=== PATIENT | female | born 1975 | race Caucasian/White ===

== ENCOUNTER → 2017-04-04 | Outpatient (CLI) | payer MEDICAID ==
[2017-04-04 19:20] LABS: BASOPHILS % (AUTO) 0.4 %; EOSINOPHILS # (AUTO) 0.1 10^3/uL (0.0-0.7); EOSINOPHILS % (AUTO) 0.9 %; HCT - HEMATOCRIT 38.3 % (37.0-47.0); HGB - HEMOGLOBIN 12.7 g/dL (12.0-16.0); LYMPHOCYTES % (AUTO) 25.2 %; MEAN CORPUSCULAR HEMOGLOBIN 29.2 pg (27.0-31.0); MEAN CORPUSCULAR HGB CONC 33.2 g/dL (32.0-36.0); MEAN PLATELET VOLUME 8.3 fL (7.9-10.8); MONOCYTES # (AUTO) 0.3 10^3/uL (0.0-1.0); MONOCYTES % (AUTO) 3.2 %; NEUTROPHILS # (AUTO) 5.7 10^3/uL (1.5-6.6); NEUTROPHILS % (AUTO) 70.3 %; NUCLEATED RED BLOOD CELLS AUTO 0.1 /100WBC; RED BLOOD COUNT 4.35 10^6/uL (4.20-5.40); RED CELL DISTRIBUTION WIDTH 13.2 % (12.0-15.0); UNCORRECTED WHITE BLOOD COUNT 8.5 x10^3/uL; WHITE BLOOD COUNT 8.1 x10^3/uL (4.8-10.8)
[2017-04-04 19:41] LABS: PLATELET MORPHOLOGY RARE GIANT PLATELETS (NORMAL)
[2017-04-04 19:49] LABS: ALBUMIN/GLOBULIN RATIO 1.3 (1.0-2.2); BILIRUBIN,TOTAL 0.6 mg/dL (0.2-1.0); BUN - BLOOD UREA NITROGEN 12 mg/dL (6-20); CALCIUM 8.9 mg/dL (8.5-10.3); CARBON DIOXIDE - CO2 25 mmol/L (21-32); CHLORIDE 104 mmol/L (101-111); CHOL/HDL RATIO 3.7 (<4.4); CHOLESTEROL 179 mg/dL; CREATININE 0.7 mg/dL (0.4-1.0); GFR - MDRD 91 (>89); GLUCOSE 76 mg/dL (70-100); HDL CHOLESTEROL 48 mg/dL; LDL/HDL RATIO 2.4 (<4.4); POTASSIUM 3.6 mmol/L (3.5-5.0); SODIUM 137 mmol/L (135-145); TOTAL PROTEIN 7.1 g/dL (6.7-8.2); TRIGLYCERIDES 85 mg/dL; VLDL CHOLESTEROL 17 mg/dL
[2017-04-04 19:50] LABS: PLATELET ESTIMATE, MANUAL NORMAL (130-450,000) (NORMAL)
== END ==
LOC: LAB.N 14:39
PROVIDERS: ATTEND Nurse Practitioner Gerontology
DX: B19.20 Unspecified viral hepatitis C without hepatic coma (principal); Z13.9 Encounter for screening, unspecified
CPT/HCPCS: 36415; 80053; 80061; 84443; 85025; 87522

== ENCOUNTER 2017-12-09 21:02 | Emergency (ER) | payer MEDICAID ==
[2017-12-09 21:13] VITALS: BP 136/105
--- NOTE | 2017-12-09 22:56 | ED Physician Documentation ---
PD HPI SKIN - Stated complaint Stated Complaint: WOUND ON FACE/HANDS - Chief complaint Chief Complaint: General - History obtained from History obtained from: Patient - History of Present Illness Timing - onset: How many days ago (several days to a week of progressive lesions on skin. Had some skin sores on arms and legs initially, and now with one on forehead too. Denies itching. Had had lice in hair and did the shampoo treatment couple weeks ago or so.) Timing - details: Gradual onset Location: Bodywide Quality / character: Painful, Burning. No: Itchy, Vesicular, Draining (but have redness around edges and yellowish base c/w infection look.) Associated symptoms: Myalgias. No: Fever, N/V/D Contributing factors: No: Insect bite /sting Similar symptoms before: Has not had sx before Review of Systems Constitutional: reports: Myalgias. denies: Fever, Chills Nose: denies: Rhinorrhea / runny nose, Congestion Throat: denies: Sore throat Cardiac: denies: Chest pain / pressure, Palpitations Respiratory: denies: Dyspnea, Cough GI: denies: Abdominal Pain, Nausea, Vomiting, Diarrhea Skin: reports: Lesions Neurologic: denies: Focal weakness, Numbness PD PAST MEDICAL HISTORY - Past Medical History Past Medical History: Yes Other Past Medical History: Hx Hoep C - Past Surgical History Past Surgical History: Yes General: Hiatal hernia repair Ortho: Other /[facility] [employer]: section, 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 - Present Medications Home Medications: Ambulatory Orders Medication Instructions Recorded Confirmed Meloxicam [Mobic] 7.5 mg PO BID PRN #20 tablet 05/15/17 Sulfamethox/Trimeth 800/160 1 each PO BID #14 tablet 05/15/17 [Bactrim Ds 800/160] Chlorhexidine Gluconate [Hibiclens] 10 ml TP DAILY #473 ml 12/10/17 Doxycycline Monohydrate 100 mg PO BID #14 tablet 12/10/17 Mupirocin 1 applic TP TID #15 oint...g. 12/10/17 Naproxen 375 mg PO BID #20 tablet 12/10/17 Permethrin 5% Cream 60 applic TOP ONCE #1 tube 12/10/17 - Allergies Allergies/Adverse Reactions: Allergies Allergy/AdvReac Type Severity Reaction Status Date / Time Latex, Natural Rubber Allergy Rash Verified 12/09/17 21:13 - Social History Does the pt smoke?: Yes Smoking Status: Current every day smoker Does the pt drink ETOH?: Yes Does the pt have substance abuse?: No - Immunizations Immunizations are current?: Yes Immunizations: TDAP current <10years - POLST Patient has POLST: No PD ED PE NORMAL - Vitals Vital signs reviewed: Yes - General General: Alert and oriented X 3, No acute distress, Well developed/nourished - HEENT HEENT: Ears normal, Pharynx benign, Other (her black hair is easy to examine and I don't see any nits. ) - Neck Neck: Supple, no meningeal sign, No adenopathy - Cardiac Cardiac: RRR, No murmur - Respiratory Respiratory: Clear bilaterally - Abdomen Abdomen: Soft, Non tender - Derm Derm: Warm and dry, Other (discrete multiple lesions (about a dozen total) on arms and legs and one on forehead of superficially ulcerative, red margins, yellow base, without weeping nor purulence, that are tender. No underlying indurance nor flucutuance. They appear superficial infections, likely staph. ) Results - Vitals Vitals: Oxygen O2 Source Room air PD MEDICAL DECISION MAKING - ED course Complexity details: considered differential (multiple superficial ulcerations without purulence but have yellowish base and halo of redness each. ), d/w patient - Sepsis Event Vital Signs: Oxygen O2 Source Room air Departure - Departure Disposition: 01 Home, Self Care Clinical Impression: Skin infection Condition: Stable Record reviewed to determine appropriate education?: Yes Instructions: ED Staph Infec Abx Tx Only Prescriptions: Chlorhexidine Gluconate [Hibiclens] 10 ml TP DAILY #473 ml Doxycycline Monohydrate 100 mg PO BID #14 tablet Mupirocin 1 applic TP TID #15 oint...g. Naproxen 375 mg PO BID #20 tablet Permethrin 5% Cream 60 applic TOP ONCE #1 tube Comments: The initial skin irritation and itchiness may be from an infestation such as scabies. Treated with the permethrin lotion from neck to toes per the bottle directions. The skin sores do appear to be infected and that may be the primary issue with an infection developing and new spots as opposed to the source from itching then getting in infected. We will treat those with oral and topical antibiotics. He can also use an anti-inflammatory to help with the discomfort. Recheck if not improving over the next several days. Discharge Date/Time: 12/10/17 00:18
[2017-12-09] MEDS ORDERED: SULFAMETH/TRIMETH DS 800/160 MG TABLET PO STA (23:17)
[2017-12-09] MEDS ORDERED: MUPIROCIN 2% OINT 1 GM TOP STA (23:17)
[2017-12-09] MEDS ORDERED: ACETAMINOPHEN 325 MG TABLET PO STA (23:17)
[2017-12-09] MEDS ORDERED: diphenhydrAMINE 25 MG CAPSULE PO STA (23:17)
== END 2017-12-10 00:18 | disposition home or self-care (01) ==
LOC: ED 21:02
DX: L08.9 Local infection of the skin and subcutaneous tissue, unspecified (principal)
CPT/HCPCS: 99283; A9270

== ENCOUNTER 2018-06-21 23:48 | Emergency (ER) | payer MEDICAID ==
[2018-06-22 00:03] VITALS: BP 135/83
[2018-06-22] MEDS ORDERED: DOXYCYCLINE 100 MG TABLET PO STA (00:51)
--- NOTE | 2018-06-22 00:53 | ED Physician Documentation ---
PD HPI SKIN - Stated complaint Stated Complaint: RASH POSSIBLE RINGWORM - Chief complaint Chief Complaint: Wound - History obtained from History obtained from: Patient - Additional information Additional information: 42-year-old female presents the emergency department for evaluation of skin lesions. Which have occurred over the past year. The patient uses IV drugs on a regular basis. The patient has multiple areas of pick silveira. The patient denies fevers, chills or chest pain or shortness of breath. Symptoms are described as mild. No other associated symptoms. 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 - Present Medications Home Medications: Ambulatory Orders Medication Instructions Recorded Confirmed Doxycycline Hyclate 100 mg PO BID #20 capsule 06/22/18 - Allergies Allergies/Adverse Reactions: Allergies Allergy/AdvReac Type Severity Reaction Status Date / Time Latex, Natural Rubber Allergy Rash Verified 06/22/18 00:03 - Social History Does the pt smoke?: Yes Smoking Status: Current every day smoker Does the pt drink ETOH?: Yes Does the pt have substance abuse?: Yes Substance Use and Type: Cocaine/Crack - Immunizations Immunizations are current?: Yes Immunizations: TDAP current <10years - POLST Patient has POLST: No PD ED PE NORMAL - General General: Alert and oriented X 3, No acute distress - HEENT HEENT: Atraumatic, PERRL, EOMI, Ears normal - Cardiac Cardiac: RRR, No murmur - Respiratory Respiratory: No respiratory distress - Derm Derm: Other (The patient has multiple track silveira on her upper extremities, the patient has multiple areas of pick silveira all of them various Stages of healing. Some appear to have superimposed cellulitis. There is no focal area of abscesses.) - Extremities Extremities: No deformity, No edema - Neuro Neuro: Alert and oriented X 3, Normal speech Results - Vitals Vitals: Vital Signs - 24 hr 06/22/18 00:00 Temperature 36.4 C L Heart Rate 95 Respiratory 19 Rate Blood Pressure 135/83 H O2 Saturation 100 Oxygen O2 Source Room air PD MEDICAL DECISION MAKING - ED course ED course: The patient appears acutely intoxicated, the reason she came to the emergency department was for evaluation of skin lesions. These appear to be PICC silveira with superimposed infection. The patient be put on a course of doxycycline. The patient has no fever, Shortness of breath or chest pain and currently no further workup is warranted at this time in the emergency department. The patient will be treated as an outpatient and will follow up with primary care. The patient will return for any worsening or any concerns Departure - Departure Disposition: 01 Home, Self Care Clinical Impression: Skin lesion Condition: Stable Instructions: ED Staph Infec Abx Tx Only Follow-Up: [facility] [Provider Group] - Within 1 week Prescriptions: Doxycycline Hyclate 100 mg PO BID #20 capsule Comments: Please return for worsening symptoms or any concerns
== END 2018-06-22 00:57 | disposition home or self-care (01) ==
LOC: ED 23:48
DX: L98.9 Disorder of the skin and subcutaneous tissue, unspecified (principal); L03.114 Cellulitis of left upper limb; L03.113 Cellulitis of right upper limb; F14.129 Cocaine abuse with intoxication, unspecified; F17.200 Nicotine dependence, unspecified, uncomplicated
CPT/HCPCS: 99282; 99283

== ENCOUNTER 2018-07-28 08:00 | Outpatient (CLI) | payer MEDICAID ==
[2018-07-28 19:33] LABS: BASOPHILS % (AUTO) 0.4 %; EOSINOPHILS # (AUTO) 0.1 10^3/uL (0.0-0.7); EOSINOPHILS % (AUTO) 1.8 %; HGB - HEMOGLOBIN 12.6 g/dL (12.0-16.0); LYMPHOCYTES # (AUTO) 1.9 10^3/uL (1.5-3.5); LYMPHOCYTES % (AUTO) 26.4 %; MEAN CORPUSCULAR HEMOGLOBIN 28.4 pg (27.0-31.0); MEAN CORPUSCULAR HGB CONC 33.4 g/dL (32.0-36.0); MONOCYTES # (AUTO) 0.3 10^3/uL (0.0-1.0); MONOCYTES % (AUTO) 4.3 %; NEUTROPHILS # (AUTO) 4.7 10^3/uL (1.5-6.6); NEUTROPHILS % (AUTO) 67.1 %; RED BLOOD COUNT 4.45 10^6/uL (4.20-5.40); RED CELL DISTRIBUTION WIDTH 14.9 % (12.0-15.0)
[2018-07-28 19:34] LABS: ALBUMIN 3.9 g/dL (3.2-5.5); ALBUMIN/GLOBULIN RATIO 1.3 (1.0-2.2); BILIRUBIN,TOTAL 0.5 mg/dL (0.2-1.0); CALCIUM 8.8 mg/dL (8.5-10.3); CREATININE 0.7 mg/dL (0.4-1.0); TOTAL PROTEIN 6.9 g/dL (6.7-8.2)
[2018-07-28 19:49] LABS: THYROID STIMULATING HORMONE 1.38 uIU/mL (0.34-5.60)
[2018-07-28 20:00] LABS: FOLATE 16.97 ng/mL (5.90 - >24.8)
[2018-07-28 20:45] LABS: PLATELET MORPHOLOGY PLATELET CLUMPING (NORMAL)
[2018-07-28 21:07] LABS: PLATELET ESTIMATE, MANUAL NORMAL (130-450,000) (NORMAL)
[2018-07-28 21:08] LABS: RBC MORPHOLOGY (MULTIPLE) NORMAL APPEARANCE (NORMAL)
[2018-07-29 13:41] LABS: HEPATITIS C ANTIBODY REACTIVE (NON-REACTIVE)
== END 2018-07-28 23:59 | disposition home or self-care (01) ==
LOC: LAB.N 08:00
PROVIDERS: ATTEND Nurse Practitioner
DX: R53.83 Other fatigue (principal); B19.20 Unspecified viral hepatitis C without hepatic coma; E55.9 Vitamin D deficiency, unspecified
CPT/HCPCS: 36415; 80053; 81599; 82306; 82390; 82607; 82746; 82785; 84443; 85025; 86803

== ENCOUNTER 2018-09-11 14:07 | Outpatient (CLI) | payer MEDICAID ==
--- NOTE | 2018-09-11 15:30 | XRAY Report ---
Reason: LUMBAGO WITH SCIATICA Procedure Date: 09/11/2018 Accession Number: [id number] / [id number] Procedure: XRN - Lumbar Spine 2 View CPT Code: FULL RESULT: EXAM: LUMBOSACRAL SPINE RADIOGRAPHY EXAM DATE: 09/11/2018 02:23 PM. CLINICAL HISTORY: LUMBAGO WITH SCIATICA. COMPARISONS: None. TECHNIQUE: 3 views. FINDINGS: Alignment: Normal. No spondylolisthesis or scoliosis. Bones: Five [id number] lumbar vertebral bodies are present. No fractures or bone lesions. Disks: Normal. Disk heights are maintained. Facets: There is a L5 pars defect without significant anterolisthesis. Sacroiliac Joints: Unremarkable. Soft Tissues: Normal. The visualized bowel gas pattern is normal. IMPRESSION: L5 pars defect. RADIA
== END 2018-09-11 14:08 | disposition home or self-care (01) ==
LOC: DI.N 14:07
PROVIDERS: ATTEND Nurse Practitioner Gerontology
DX: M43.06 Spondylolysis, lumbar region (principal)
CPT/HCPCS: 72100

== ENCOUNTER 2018-11-25 19:20 | Emergency (ER) | payer MEDICAID ==
[2018-11-25] MEDS ORDERED: SULFAMETH/TRIMETH DS 800/160 MG TABLET PO STA (19:42)
--- NOTE | 2018-11-25 19:44 | ED Physician Documentation ---
History of Present Illness - Stated complaint Stated Complaint: SKIN WOUNDS - Chief complaint Chief Complaint: General - History obtained from History obtained from: Patient (Multiple skin wounds, somewhat chronic may be over the last year. She denies recent drug use but does have a history of same. 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 - Present Medications Home Medications: Ambulatory Orders Medication Instructions Recorded Confirmed Doxycycline Hyclate 100 mg PO BID #20 capsule 06/22/18 Mupirocin 1 gm TP TID #2 oin.pf.kaylah 11/25/18 Sulfamethoxazole/Trimethoprim 1 each PO BID #20 tablet 11/25/18 [Sulfamethoxazole-Tmp Ds Tablet] - Allergies Allergies/Adverse Reactions: Allergies Allergy/AdvReac Type Severity Reaction Status Date / Time Latex, Natural Rubber Allergy Rash Verified 11/25/18 19:24 - Social History Does the pt smoke?: Yes Smoking Status: Current every day smoker Does the pt drink ETOH?: Yes Does the pt have substance abuse?: Yes Substance Use and Type: Meth, Heroin - Immunizations Immunizations are current?: Yes Immunizations: TDAP current <10years - POLST Patient has POLST: No PD ED PE NORMAL - Vitals Vital signs reviewed: Yes - General General: Alert and oriented X 3, No acute distress - Derm Derm: Other (Multiple what look like shallow ulcers that have been picked out in the back of the neck, forearms, front of the neck. None with significant cellulitis. None with drainage.) - Neuro Neuro: Alert and oriented X 3 Results - Vitals Vitals: Vital Signs - 24 hr 11/25/18 19:21 Temperature 36.0 C L Heart Rate 93 Respiratory 19 Rate Blood Pressure 136/85 H O2 Saturation 98 Oxygen O2 Source Room air Departure - Departure Disposition: 01 Home, Self Care Clinical Impression: Skin infection Condition: Good Record reviewed to determine appropriate education?: Yes Instructions: ED Staph Infec Abx Tx Only Follow-Up: [facility] [Provider Group] - Within 1 week Prescriptions: Mupirocin 1 gm TP TID #2 oin.pf.kaylah Sulfamethoxazole/Trimethoprim [Sulfamethoxazole-Tmp Ds Tablet] 1 each PO BID #20 tablet
[2018-11-25 20:00] VITALS: BP 129/71
== END 2018-11-25 20:00 | disposition home or self-care (01) ==
LOC: ED 19:20
DX: L08.9 Local infection of the skin and subcutaneous tissue, unspecified (principal); F17.200 Nicotine dependence, unspecified, uncomplicated
CPT/HCPCS: 99282; 99283; A9270

== ENCOUNTER 2018-12-04 17:52 | Emergency (ER) | payer MEDICAID ==
[2018-12-04 18:11] VITALS: BP 134/101
== END 2018-12-04 20:52 | disposition left against medical advice (07) ==
LOC: ED 17:52
DX: Z53.21 Procedure and treatment not carried out due to patient leaving prior to being seen by health care provider (principal)

== ENCOUNTER 2019-02-17 16:27 | Emergency (ER) | payer MEDICAID ==
[2019-02-17 16:39] VITALS: BP 135/74
[2019-02-17] MEDS ORDERED: DOXYCYCLINE 100 MG TABLET PO STA (16:48)
--- NOTE | 2019-02-17 16:51 | ED Physician Documentation ---
History of Present Illness - Stated complaint Stated Complaint: HEAD INJURY, BODY RASH - Chief complaint Chief Complaint: General - History obtained from History obtained from: Patient - History of Present Illness Timing: Other (43-year-old woman presents with lesions on her skin that have been going on for greater than a year. Previous culture reviewed, beta- hemolytic strep and Citrobacter. She denies ongoing drug use but does have a history of same. 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 - Present Medications Home Medications: Ambulatory Orders Medication Instructions Recorded Confirmed Doxycycline Hyclate 100 mg PO BID #20 capsule 02/17/19 - Allergies Allergies/Adverse Reactions: Allergies Allergy/AdvReac Type Severity Reaction Status Date / Time Latex, Natural Rubber Allergy Rash Verified 02/17/19 16:36 - Social History Does the pt smoke?: Yes Smoking Status: Current every day smoker Does the pt drink ETOH?: Yes Does the pt have substance abuse?: Yes - Immunizations Immunizations are current?: Yes Immunizations: TDAP current <10years - POLST Patient has POLST: No PD ED PE NORMAL - Vitals Vital signs reviewed: Yes - General General: Alert and oriented X 3, No acute distress, Other (Somewhat unkempt with track silveira on both arms.) - HEENT HEENT: Other (There are some shallow skin ulcers on the forehead from being picked out. No intranasal lesions.) - Extremities Extremities: Other (She points to the feet as another site of lesions, she points at normal heaped up callus skin on the toes as a problem.) - Neuro Neuro: Alert and oriented X 3, Normal speech Results - Vitals Vitals: Vital Signs - 24 hr 02/17/19 16:34 Temperature 36.4 C L Heart Rate 92 Respiratory 20 Rate Blood Pressure 135/74 H O2 Saturation 100 Oxygen O2 Source Room air PD MEDICAL DECISION MAKING - ED course ED course: 43-year-old woman presents with skin lesions, they were picked at. Previous cultures reviewed. She says she may be allergic to penicillin. We will start doxycycline pending dermatology follow-up. Departure - Departure Disposition: 01 Home, Self Care Clinical Impression: Skin infection Condition: Good Record reviewed to determine appropriate education?: Yes Instructions: ED Michele Chawla Abx Tx Only Prescriptions: Doxycycline Hyclate 100 mg PO BID #20 capsule Comments: Follow-up with the psychologists as scheduled. Return for new worsening symptoms.
== END 2019-02-17 17:35 | disposition home or self-care (01) ==
LOC: ED 16:27
DX: L08.9 Local infection of the skin and subcutaneous tissue, unspecified (principal); L98.499 Non-pressure chronic ulcer of skin of other sites with unspecified severity; L84 Corns and callosities; Z88.0 Allergy status to penicillin
CPT/HCPCS: 99282; 99283; A9270

== ENCOUNTER 2019-04-28 00:31 | Emergency (ER) | payer MEDICAID ==
--- NOTE | 2019-04-28 01:56 | ED Physician Documentation ---
History of Present Illness - Stated complaint Stated Complaint: HEAD PX - Chief complaint Chief Complaint: General - History obtained from History obtained from: Patient - History of Present Illness Timing: Other ("six months, maybe a year" (per patient)) Pain level now: 4 Improved by: nothing Worsened by: no apparent inciting nor exacerbating factors - Additonal information Additional information: c/o multiple painful lesions on various parts of body for months-year. She says she has been evaluated by PMD for this and then dermatology. She does not recall any specific diagnosis nor treatment provided by the gaming associate, says "I don't think he was listening to me". She has been evaluated in this ED for similar c/o, most recently 2 months ago. 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 - Present Medications Home Medications: Ambulatory Orders Medication Instructions Recorded Confirmed Doxycycline Hyclate 100 mg PO BID #20 capsule 02/17/19 Clindamycin HCl [Clindamycin 300MG 300 mg PO Q6H #28 capsule 04/28/19 CAP] - Allergies Allergies/Adverse Reactions: Allergies Allergy/AdvReac Type Severity Reaction Status Date / Time Latex, Natural Rubber Allergy Rash Verified 02/17/19 16:36 Penicillins AdvReac Unknown Verified 04/28/19 00:46 - Social History Does the pt smoke?: Yes Smoking Status: Current every day smoker Does the pt drink ETOH?: Yes Does the pt have substance abuse?: Yes Substance Use and Type: Meth, Heroin - Immunizations Immunizations are current?: Yes Immunizations: TDAP current <10years - POLST Patient has POLST: No PD ED PE NORMAL - Vitals Vital signs reviewed: Yes - General General: Alert and oriented X 3, No acute distress, Well developed/nourished PD ED PE EXPANDED - Derm Derm: Other (c/o midline anterior scalp lesion in area where she has clipped her hair; there is no lesion on exam of this area. There is a 2-3 cm scar midline posterior neck without tenderness nor evidence of acute/active infection. Other lesions as diagrammed) SKin visual: 1 - rash (large (5-6 cm diameter) flat, sharply marginated erythema that is tender and hot to touch. no fluctuance), swelling, tenderness 2 - rash (3 cm diameter flat, firm, sharply-marginated erythema that is tender, hot to touch. no fluctuance), tenderness - Psych Psych: Poor eye contact, Other (odd affect; answers are quiet, rambling at times and occasionally requires refocusing on topic, but polite and cooperative) Results - Vitals Vitals: Oxygen O2 Source Room air PD MEDICAL DECISION MAKING - ED course Complexity details: reviewed old records, considered differential, d/w patient ED course: c/o chronic lesions in different areas of her body, also endorses parasitosis (says she has removed "worms" from some of the lesions, mostly on her feet, if she picks at the lesions). there is no scalp lesion although she feels there is. The lesion on her neck appears to be an old scar without active/acute infection. She has lesions on both arms as diagrammed that appear to be acute cellulitis without findings s/o abscess. Departure - Departure Disposition: 01 Home, Self Care Clinical Impression: Cellulitis Condition: Good Instructions: ED Infec Skin Cellulitis Follow-Up: DAVID CHEUNG MD [Primary Care Provider] - Prescriptions: Clindamycin HCl [Clindamycin 300MG CAP] 300 mg PO Q6H #28 capsule Discharge Date/Time: 04/28/19 02:22
[2019-04-28] MEDS ORDERED: CLINDAMYCIN 150 MG CAPSULE PO STA (02:13)
[2019-04-28 02:23] VITALS: BP 128/84
== END 2019-04-28 02:22 | disposition home or self-care (01) ==
LOC: ED 00:31
DX: L03.114 Cellulitis of left upper limb (principal); L03.113 Cellulitis of right upper limb; F17.200 Nicotine dependence, unspecified, uncomplicated
CPT/HCPCS: 99282; 99283; A9270

== ENCOUNTER 2019-06-08 11:00 | Emergency (ER) | payer MEDICAID ==
[2019-06-08 11:08] VITALS: BP 140/92
--- NOTE | 2019-06-08 11:14 | ED Physician Documentation ---
History of Present Illness - Stated complaint Stated Complaint: MOUTH PX,HEAD SORE - Chief complaint Chief Complaint: Heent - History obtained from History obtained from: Patient (Patient is 43-year-old female chronic cigarette smoker presented to the emergency room with 2 complaints, dental pain to her right upper molar and rash that has been ongoing for the last 8 months. As for the dental pain this has been ongoing for the last couple days and gradually worsened. No pus drainage. No systemic fever. There is mild swelling to the submandibular area. She has a dentist but has not called appointment yet. As to the rashes patient has been seen by primary care doctor, labor economics teacher, etiology is unknown.), Family - History of Present Illness Timing: Prior to arrival, How many weeks ago (1) Pain level max: 5 Pain level now: 5 Review of Systems Ten Systems: 10 systems reviewed and negative Constitutional: reports: Reviewed and negative Eyes: reports: Reviewed and negative Ears: reports: Reviewed and negative Nose: reports: Reviewed and negative Throat: reports: Dental pain / toothache Cardiac: reports: Reviewed and negative Respiratory: reports: Reviewed and negative GI: reports: Reviewed and negative : reports: Reviewed and negative Skin: reports: Rash, Lesions Musculoskeletal: reports: Reviewed and negative Neurologic: reports: Reviewed and negative Psychiatric: reports: Reviewed and negative Endocrine: reports: Reviewed and negative Immunocompromised: reports: Reviewed and negative PD PAST MEDICAL HISTORY - Past Medical History Cardiovascular: None Respiratory: None Neuro: None GI: Hepatitis : None HEENT: None Psych: None Musculoskeletal: None Derm: Other - Past Surgical History Past Surgical History: Yes General: Hiatal hernia repair 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, 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 - Present Medications Home Medications: Ambulatory Orders Medication Instructions Recorded Confirmed Doxycycline Hyclate 100 mg PO BID #20 capsule 02/17/19 Clindamycin HCl [Clindamycin 300MG 300 mg PO Q6H #28 capsule 04/28/19 CAP] Doxycycline Hyclate [Vibramycin] 100 mg PO BID #20 capsule 06/08/19 - Allergies Allergies/Adverse Reactions: Allergies Allergy/AdvReac Type Severity Reaction Status Date / Time Latex, Natural Rubber Allergy Rash Verified 02/17/19 16:36 Penicillins AdvReac Unknown Verified 04/28/19 00:46 - Social History Does the pt smoke?: Yes Smoking Status: Current every day smoker Does the pt drink ETOH?: Yes Does the pt have substance abuse?: Yes - Immunizations Immunizations are current?: Yes Immunizations: TDAP current <10years - POLST Patient has POLST: No PD ED PE NORMAL - Vitals Vital signs reviewed: Yes - General General: Alert and oriented X 3, No acute distress, Well developed/nourished - HEENT HEENT: Atraumatic, PERRL, EOMI, Other (Severe widespread dental decay, dry socket to the right lower molar area, there is obvious dental carry, mild swelling to the submandibular gland and tenderness to palpation,) - Neck Neck: Supple, no meningeal sign, No bony TTP, No adenopathy - Cardiac Cardiac: RRR, No murmur - Respiratory Respiratory: Clear bilaterally - Abdomen Abdomen: Normal bowel sounds, Soft, Non tender, Non distended - Derm Derm: Other (Patient of unknown rashes to the forehead that is running or linear pattern, there is also rashes to both hand dorsal surface.) - Extremities Extremities: No deformity - Neuro Neuro: Alert and oriented X 3 - Psych Psych: Normal mood, Normal affect Results - Vitals Vitals: Vital Signs - 24 hr 06/08/19 11:04 Temperature 36.6 C Heart Rate 106 H Respiratory 18 Rate Blood Pressure 140/92 H O2 Saturation 100 Oxygen O2 Source Room air PD MEDICAL DECISION MAKING - ED course Complexity details: d/w patient ED course: Patient is given impression of dental carry, dental abscess. Antibiotic doxycycline will be provided for her. She is asked to follow-up with a dentist as soon as possible for dental work which may include drilling. As for the rashes, She has been seen by primary care doctor and labor economics teacher. I have asked her to continue following up. she is also asked to continue keep the area clean and dry as much as possible. Departure - Departure Disposition: 01 Home, Self Care Clinical Impression: Pain due to dental caries, Skin lesion, Dental abscess Condition: Stable Instructions: Rash Skin Self Care, ED Abscess Dental Prescriptions: Doxycycline Hyclate [Vibramycin] 100 mg PO BID #20 capsule Comments: Please call your dentist for appointment as soon as possible for dental work. Take antibiotic as prescribed for the next 10 days twice daily. As for the rashes, continue following up with the primary care doctor or labor economics teacher for further management. Discharge Date/Time: 06/08/19 11:48
== END 2019-06-08 11:48 | disposition home or self-care (01) ==
LOC: ED 11:00
DX: K08.89 Other specified disorders of teeth and supporting structures (principal); K04.7 Periapical abscess without sinus; R21 Rash and other nonspecific skin eruption; F17.200 Nicotine dependence, unspecified, uncomplicated
CPT/HCPCS: 99282; 99284

== ENCOUNTER 2019-07-01 17:25 | Emergency (ER) | payer MEDICAID ==
[2019-07-01] MEDS ORDERED: SULFAMETH/TRIMETH DS 800/160 MG TABLET PO STA (20:11)
--- NOTE | 2019-07-01 20:13 | ED Physician Documentation ---
History of Present Illness - Stated complaint Stated Complaint: RASH ON SCALP - Chief complaint Chief Complaint: General - History obtained from History obtained from: Patient (Her months now she has had a somewhat occasionally painful rash of the scalp. She says she saw a crm technical lead who did nothing. She was on mupirocin in the past which was mildly helpful. 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 - Present Medications Home Medications: Ambulatory Orders Medication Instructions Recorded Confirmed Doxycycline Hyclate 100 mg PO BID #20 capsule 02/17/19 Clindamycin HCl [Clindamycin 300MG 300 mg PO Q6H #28 capsule 04/28/19 CAP] Doxycycline Hyclate [Vibramycin] 100 mg PO BID #20 capsule 06/08/19 Sulfamethoxazole/Trimethoprim 1 each PO BID 7 Days #20 tablet 07/01/19 [Sulfamethoxazole-Tmp Ds Tablet] - Allergies Allergies/Adverse Reactions: Allergies Allergy/AdvReac Type Severity Reaction Status Date / Time Latex, Natural Rubber Allergy Rash Verified 02/17/19 16:36 Penicillins AdvReac Unknown Verified 04/28/19 00:46 - Social History Does the pt smoke?: Yes Smoking Status: Current every day smoker Does the pt drink ETOH?: Yes Does the pt have substance abuse?: Yes - Immunizations Immunizations are current?: Yes Immunizations: TDAP current <10years - POLST Patient has POLST: No PD ED PE NORMAL - Vitals Vital signs reviewed: Yes - General General: Alert and oriented X 3, No acute distress - HEENT HEENT: Other (Mild anterior scalp cellulitis without anything to culture, some areas of reactive alopecia related to same.) - Neuro Neuro: Alert and oriented X 3, Normal speech Results - Vitals Vitals: Vital Signs - 24 hr 07/01/19 17:57 Temperature 36.4 C L Heart Rate 85 Respiratory 16 Rate Blood Pressure 113/80 O2 Saturation 99 Oxygen O2 Source Room air Departure - Departure Disposition: Home, Self Care Clinical Impression: Dissecting cellulitis of scalp Condition: Good Record reviewed to determine appropriate education?: Yes Instructions: ED Infec Skin Cellulitis Follow-Up: [facility] [Provider Group] Prescriptions: Sulfamethoxazole/Trimethoprim [Sulfamethoxazole-Tmp Ds Tablet] 1 each PO BID 7 Days #20 tablet Comments: Follow-up with a crm technical lead again, return for new or worsening symptoms.
[2019-07-01 20:20] VITALS: BP 126/82
== END 2019-07-01 20:23 | disposition home or self-care (01) ==
LOC: ED 17:25
DX: L03.811 Cellulitis of head [any part, except face] (principal); L65.9 Nonscarring hair loss, unspecified; F17.200 Nicotine dependence, unspecified, uncomplicated
CPT/HCPCS: 99282; 99283; A9270

== ENCOUNTER 2019-07-12 17:07 | Emergency (ER) | payer MEDICAID ==
--- NOTE | 2019-07-12 17:17 | ED Physician Documentation ---
PD HPI SKIN - Stated complaint Stated Complaint: FOREHEAD WOUND - History obtained from History obtained from: Patient - History of Present Illness Timing - onset: How many weeks ago (2) Timing - duration: Weeks (2) Timing - details: Gradual onset (She had had feeling of skin irritation around the scalp and thought there had been some bugs under her skin. She had had some skin sores. She was seen in the emergency department and prescribed Bactrim antibiotic for it. She states she is continued with some sores in the area and feels new ones. She feels as if something might be crawling under her skin. She denies picking at it. She has not had any purulent drainage. She denies any obvious visualization of bugs but more had the feeling of crawling and itchiness under the skin. She has not had any improvement with the Bactrim antibiotic. Here for evaluation.), Waxing and waning Location: Scalp, Face (forehead currently) Quality / character: Itchy, Burning. No: Swelling, Draining Improved by: No: Benadryl, Antibiotics Associated symptoms: No: Fever, Myalgias, N/V/D Contributing factors: No: Insect bite /sting, Recent illness Similar symptoms before: Diagnosis (presumed superficial staph infections in the past.) Recently seen: Emergency Dept (a week ago for similar and Rx Bactrim. Not improved, but not worse.) Review of Systems Constitutional: denies: Fever, Chills, Myalgias Nose: denies: Rhinorrhea / runny nose, Congestion Throat: denies: Sore throat Respiratory: denies: Cough Skin: reports: Lesions (she has feeling of bugs crawling under the skin in the area of the sores, but denies picking at the area.) Neurologic: denies: Focal weakness, Numbness PD PAST MEDICAL HISTORY - Past Medical History Cardiovascular: None Respiratory: None Neuro: None GI: Hepatitis (type C) : None HEENT: None Psych: None Musculoskeletal: None Derm: Other - Past Surgical History Past Surgical History: Yes General: Hiatal hernia repair 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, 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 - Present Medications Home Medications: Ambulatory Orders Medication Instructions Recorded Confirmed Sulfamethoxazole/Trimethoprim 1 each PO BID 7 Days #20 tablet 07/01/19 [Sulfamethoxazole-Tmp Ds Tablet] Chlorhexidine Gluconate [Hibiclens] 15 ml TP DAILY #236 ml 07/12/19 Doxycycline Monohydrate 100 mg PO BID #14 tablet 07/12/19 Mupirocin 1 applic TP BID #15 g 07/12/19 hydrOXYzine HCL [Hydroxyzine HCl] 25 mg PO BID #20 tablet 07/12/19 - Allergies Allergies/Adverse Reactions: Allergies Allergy/AdvReac Type Severity Reaction Status Date / Time Latex, Natural Rubber Allergy Rash Verified 02/17/19 16:36 Penicillins AdvReac Unknown Verified 04/28/19 00:46 - Living Situation Living Situation: reports: With friend(s) - Social History Does the pt smoke?: Yes Smoking Status: Current every day smoker Does the pt drink ETOH?: Yes Does the pt have substance abuse?: Yes - Immunizations Immunizations are current?: Yes Immunizations: TDAP current <10years - POLST Patient has POLST: No PD ED PE NORMAL - Vitals Vital signs reviewed: Yes - General General: Alert and oriented X 3, Well developed/nourished - HEENT HEENT: Pharynx benign - Neck Neck: Supple, no meningeal sign, No adenopathy - Cardiac Cardiac: RRR, No murmur - Respiratory Respiratory: Clear bilaterally - Derm Derm: Normal color, Warm and dry, Other (The upper forehead at the frontal hairline shows several small superficial areas of inflammation and tenderness without ulceration. There is no fluctuance noted. They do appear like small superficial abscesses. Examination to the scalp does not reveal any nits or signs of parasites. The skin diffusely on her hands and arms and back of the neck show previous scars consistent with multiple skin abscesses.) Results - Vitals Vitals: Vital Signs - 24 hr 07/12/19 17:18 Temperature 36.6 C Heart Rate 90 Respiratory 16 Rate Blood Pressure 141/86 H O2 Saturation 100 Oxygen O2 Source Room air PD MEDICAL DECISION MAKING - ED course Complexity details: reviewed old records, considered differential, d/w patient Departure - Departure Disposition: 01 Home, Self Care Clinical Impression: Skin infection Condition: Stable Record reviewed to determine appropriate education?: Yes Instructions: ED Staph Infec Abx Tx Only Prescriptions: Chlorhexidine Gluconate [Hibiclens] 15 ml TP DAILY #236 ml Doxycycline Monohydrate 100 mg PO BID #14 tablet hydrOXYzine HCL [Hydroxyzine HCl] 25 mg PO BID #20 tablet Mupirocin 1 applic TP BID #15 g Comments: Cleanse the sores once or twice daily and apply topical mupirocin very lightly to the areas. You can use it on other skin wounds as well. With your daily shower, use the chlorhexidine antiseptic body wash (including in the scalp and pretty much all over your skin) daily to reduce the amount of germs on the skin overall. Doxycycline antibiotic twice daily for a week. Hydroxyzine antihistamine twice daily to reduce itching. Recheck if not improved well over the next several days to week. I do not see any signs or indications of head lice or skin infestations such as scabies. This is more likely bacterial such as staph.
[2019-07-12 17:21] VITALS: BP 141/86
[2019-07-12] MEDS ORDERED: DOXYCYCLINE 100 MG TABLET PO STA (17:28)
[2019-07-12] MEDS ORDERED: MUPIROCIN 2% OINT 1 GM TOP STA (17:28)
[2019-07-12] MEDS ORDERED: CETIRIZINE 10 MG TABLET PO STA (17:28)
[2019-07-12] MEDS ORDERED: LORazepam 1 MG TABLET PO STA (17:30)
== END 2019-07-12 17:50 | disposition home or self-care (01) ==
LOC: ED 17:07
DX: L08.9 Local infection of the skin and subcutaneous tissue, unspecified (principal); Z88.0 Allergy status to penicillin; F17.200 Nicotine dependence, unspecified, uncomplicated
CPT/HCPCS: 99283; 99284; A9270; J8499

== ENCOUNTER 2019-09-08 17:38 | Emergency (ER) | payer MEDICAID ==
[2019-09-08 17:51] VITALS: BP 130/76
--- NOTE | 2019-09-08 18:51 | ED Physician Documentation ---
PD HPI SKIN - Stated complaint Stated Complaint: RASH ON TOP OF HEAD - Chief complaint Chief Complaint: Wound - History obtained from History obtained from: Patient - History of Present Illness Timing - onset: How many months ago (couple of months of persistent/undulating patch of rash upper forehead/frontal scalp area. Itchy and some scaly. Pt has seen white specks from the area at times and thought might be some bug. Has tried lice shampoo, and dandruff shampoos. Has noted some small patches of itchy skin on chest wall as well, and is having itchy spot medial left eyelid the past few days.) Timing - duration: Months Timing - details: Gradual onset, Waxing and waning Location: Scalp, Face, Chest Quality / character: Itchy. No: Raised, Vesicular, Draining Review of Systems Constitutional: denies: Fever Nose: denies: Rhinorrhea / runny nose, Congestion Throat: denies: Sore throat Cardiac: denies: Chest pain / pressure Respiratory: denies: Dyspnea, Cough GI: denies: Abdominal Pain, Nausea, Vomiting, Diarrhea Neurologic: denies: Focal weakness, Numbness, Altered mental status, Headache PD PAST MEDICAL HISTORY - Past Medical History Cardiovascular: None Respiratory: None Neuro: None GI: Hepatitis : None HEENT: None Psych: None Musculoskeletal: None Derm: Other - Past Surgical History Past Surgical History: Yes General: Hiatal hernia repair 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 09/08/19 [Nystatin-Triamcinolone Cream] - Allergies Allergies/Adverse Reactions: Allergies Allergy/AdvReac Type Severity Reaction Status Date / Time Latex, Natural Rubber Allergy Rash Verified 09/08/19 17:51 Penicillins AdvReac Unknown Verified 09/08/19 17:51 - Social History Does the pt smoke?: Yes Smoking Status: Current every day smoker Does the pt drink ETOH?: Yes Does the pt have substance abuse?: Yes - Immunizations Immunizations are current?: Yes Immunizations: TDAP current <10years - POLST Patient has POLST: No PD ED PE NORMAL - Vitals Vital signs reviewed: Yes - General General: Alert and oriented X 3, No acute distress (but does seem somewhat anxious about the rash. ), Well developed/nourished - HEENT HEENT: PERRL, EOMI, Ears normal, Pharynx benign, Other - Neck Neck: Supple, no meningeal sign, No adenopathy - Cardiac Cardiac: RRR, No murmur - Respiratory Respiratory: Clear bilaterally - Derm Derm: Normal color, Warm and dry, Other (her frontal scalp/upper forehead with rounded area of some redness with slightly raised edge but not scaling per se right now. There is short hair in area c/w her having cut it short, but also a 1 cm area of alopecia. No redness/inflammation of the middle part of the rash area. No drainage nor fluctuance. ) - Extremities Extremities: Other (both feet with dry skin generally, and with redness plantar aspect, demarcated at sides of feet, with more redness particularly between toes. Looks c/w athletes foot. ) Results - Vitals Vitals: Vital Signs - 24 hr 09/08/19 17:48 Temperature 36.3 C L Heart Rate 90 Respiratory 16 Rate Blood Pressure 130/76 O2 Saturation 100 Oxygen O2 Source Room air Departure - Departure Disposition: 01 Home, Self Care Clinical Impression: Tinea corporis Tinea pedis Qualifiers: Laterality: bilateral Qualified Code(s): B35.3 - Tinea pedis Condition: Stable Record reviewed to determine appropriate education?: Yes Instructions: ED Ringworm Infec Fungal Prescriptions: Fluconazole [Diflucan] 100 mg PO Q3D #4 tablet Nystatin/Triamcin [Nystatin-Triamcinolone Cream] 1 applic TP BID #30 cream..g. Comments: Clean your feet with soap and water twice daily and apply cream to the area. Use some moisturizing foot cream or lotion over that to keep it from being dry and hard. You can use the antifungal cream to the skin rash on your forehead as well. I think this looks like a skin fungal infection which is similar but not exactly the same as the one on the bottom of the feet. The same white ointment should help with both. Concurrently take the antifungal tablet every 3 days for week and a half to help with that as well. Recheck if not improved over the next 1-2 weeks. Discharge Date/Time: 09/08/19 19:19
[2019-09-08] MEDS ORDERED: FLUCONAZOLE 100 MG TABLET PO STA (19:04)
[2019-09-08] MEDS ORDERED: CETIRIZINE 10 MG TABLET PO STA (19:04)
== END 2019-09-08 19:19 | disposition home or self-care (01) ==
LOC: ED 17:38
DX: B35.4 Tinea corporis (principal); B35.3 Tinea pedis; F17.200 Nicotine dependence, unspecified, uncomplicated
CPT/HCPCS: 99282; 99284; A9270

== ENCOUNTER 2019-09-13 22:40 | Emergency (ER) | payer MEDICAID ==
--- NOTE | 2019-09-13 22:44 | ED Physician Documentation ---
History of Present Illness - Stated complaint Stated Complaint: ITCHY HEAD - History obtained from History obtained from: Patient (the patient is a 44 y/o f who p/w w a cc of scalp rash that she is being treated for currently with multiple medications and reports that it is improving mildly and would like it to be rechecked. denies fevers, headaches or neck pain. is on diflucan and bactrim currrently.) Review of Systems Constitutional: reports: Reviewed and negative Eyes: reports: Reviewed and negative Ears: reports: Reviewed and negative Nose: reports: Reviewed and negative Throat: reports: Reviewed and negative Cardiac: reports: Reviewed and negative Respiratory: reports: Reviewed and negative GI: reports: Reviewed and negative : reports: Reviewed and negative Skin: reports: Rash Musculoskeletal: reports: Reviewed and negative Neurologic: reports: Reviewed and negative Psychiatric: reports: Reviewed and negative Endocrine: reports: Reviewed and negative Immunocompromised: reports: Reviewed and negative PD PAST MEDICAL HISTORY - Past Medical History Cardiovascular: None Respiratory: None Neuro: None GI: Hepatitis : None HEENT: None Psych: None Musculoskeletal: None Derm: Other - Past Surgical History Past Surgical History: Yes General: Hiatal hernia repair 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 09/13/19 - Allergies Allergies/Adverse Reactions: Allergies Allergy/AdvReac Type Severity Reaction Status Date / Time Latex, Natural Rubber Allergy Rash Verified 09/13/19 22:51 Penicillins AdvReac Unknown Verified 09/13/19 22:51 - Social History Does the pt smoke?: Yes Smoking Status: Current every day smoker Does the pt drink ETOH?: Yes Does the pt have substance abuse?: Yes - Immunizations Immunizations are current?: Yes Immunizations: TDAP current <10years - POLST Patient has POLST: No PD ED PE NORMAL - Vitals Vital signs reviewed: Yes - General General: Alert and oriented X 3, No acute distress, Well developed/nourished - HEENT HEENT: Atraumatic, PERRL, Moist mucous membranes, Other (3x3 cm rash with raised periperal rash in circumferential pattern area on scalp with central clearing, no occipital LAD.) - Neck Neck: Supple, no meningeal sign, No adenopathy - Cardiac Cardiac: RRR, No murmur - Respiratory Respiratory: Clear bilaterally - Abdomen Abdomen: Normal bowel sounds, Soft, Non tender, Non distended - Derm Derm: Other (3x3 cm rash with raised periperal rash in circumferential pattern area on scalp with central clearing.) - Extremities Extremities: No deformity - Neuro Neuro: Alert and oriented X 3 - Psych Psych: Normal mood, Normal affect Results - Vitals Vitals: Vital Signs - 24 hr 09/13/19 22:46 Temperature 36.7 C Heart Rate 95 Respiratory 18 Rate Blood Pressure 148/92 H O2 Saturation 98 Oxygen O2 Source Room air PD MEDICAL DECISION MAKING - ED course Complexity details: considered differential (tinea capitis) Departure - Departure Disposition: 01 Home, Self Care Clinical Impression: Tinea capitis Condition: Stable Instructions: ED Dermatitis Ringworm Scalp Follow-Up: [facility] [Provider Group] - Tomorrow Prescriptions: Clotrimazole [Clotrimazole AF] 28 gm TP BID #1 cream..g. Comments: establish care with a primary care provider and follow up this week. use topical clotrimazole to affected area 2 times daily.
[2019-09-13 22:51] VITALS: BP 148/92
== END 2019-09-13 23:36 | disposition home or self-care (01) ==
LOC: ED 22:40
DX: B35.0 Tinea barbae and tinea capitis (principal); F17.200 Nicotine dependence, unspecified, uncomplicated
CPT/HCPCS: 99282; 99284

== ENCOUNTER 2019-10-03 16:27 | Emergency (ER) | payer MEDICAID ==
--- NOTE | 2019-10-03 17:02 | ED Physician Documentation ---
History of Present Illness - Stated complaint Stated Complaint: SCALP IRRITATION - Chief complaint Chief Complaint: Wound - History obtained from History obtained from: Patient - History of Present Illness Timing: Chronic Pain level max: 0 Pain level now: 0 - Additonal information Additional information: Patient is a 44-year-old female who presents to the emergency department complaining of all over body rashes for the past several months. She states she has been treated with multiple different medications. Complains that most of the rash was in her scalp and on her hands and feet. She states that they are itchy and she has been told that these are fungal rashes. She has seen dermatology but never followed up. Nothing makes it better or worse. 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 - Present Medications Home Medications: Ambulatory Orders Medication Instructions Recorded Confirmed Terbinafine [Lamisil] 250 mg PO DAILY #14 tablet 10/03/19 - Allergies Allergies/Adverse Reactions: Allergies Allergy/AdvReac Type Severity Reaction Status Date / Time Latex, Natural Rubber Allergy Rash Verified 10/03/19 16:36 Penicillins AdvReac Unknown Verified 10/03/19 16:36 - Social History Does the pt smoke?: Yes Smoking Status: Current every day smoker Does the pt drink ETOH?: Yes Does the pt have substance abuse?: Yes - Immunizations Immunizations are current?: Yes Immunizations: TDAP current <10years - POLST Patient has POLST: No PD ED PE NORMAL - Vitals Vital signs reviewed: Yes - General General: Alert and oriented X 3, No acute distress - HEENT HEENT: Moist mucous membranes - Neck Neck: Supple, no meningeal sign - Cardiac Cardiac: RRR, Strong equal pulses - Respiratory Respiratory: No respiratory distress, Clear bilaterally - Abdomen Abdomen: Soft, Non tender, Non distended - Derm Derm: Warm and dry - Extremities Extremities: Other (Mild scaling rash to the bilateral feet, on the backs of the hands, left upper thigh and scalp.) - Neuro Neuro: Alert and oriented X 3 - Psych Psych: Normal mood, Normal affect Results - Vitals Vitals: Vital Signs - 24 hr 10/03/19 10/03/19 10/03/19 16:34 17:13 17:18 Temperature 36.8 C 36.7 C Heart Rate 90 85 82 Respiratory 18 16 16 Rate Blood Pressure 135/86 H 128/85 H 132/78 H O2 Saturation 99 99 99 Oxygen O2 Source Room air PD MEDICAL DECISION MAKING - ED course Complexity details: considered differential, d/w patient ED course: Patient appears to have tinea corporis. She has been tried on multiple medications without relief. We will trial her on oral terbinafine. Recommend that she follow-up closely with dermatology. Patient counseled regarding signs and symptoms for which I believe and urgent re-evaluation would be necessary. Patient with good understanding of and agreement to plan and is comfortable going home at this time This document was made in part using voice recognition software. While efforts are made to proofread this document, sound alike and grammatical errors may occur. Departure - Departure Disposition: 01 Home, Self Care Clinical Impression: Tinea corporis Condition: Good Instructions: ED Ringworm Infec Fungal Follow-Up: your,doctor in 3 days [Other] Prescriptions: Terbinafine [Lamisil] 250 mg PO DAILY #14 tablet Comments: Take all the medication until gone. Follow-up with your doctor within 1 week for further care. 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 Discharge Date/Time: 10/03/19 17:19
[2019-10-03 17:18] VITALS: BP 132/78
== END 2019-10-03 17:19 | disposition home or self-care (01) ==
LOC: ED 16:27
DX: B35.4 Tinea corporis (principal); F17.200 Nicotine dependence, unspecified, uncomplicated
CPT/HCPCS: 99282

== ENCOUNTER 2019-12-28 13:18 | Emergency (ER) | payer MEDICAID ==
[2019-12-28 13:28] VITALS: BP 130/81
--- NOTE | 2019-12-28 13:43 | ED Physician Documentation ---
History of Present Illness - Stated complaint Stated Complaint: HEAD PX - Chief complaint Chief Complaint: Neuro - History obtained from History obtained from: Patient - History of Present Illness Timing: Prior to arrival - Additonal information Additional information: 44-year-old female presents to the emergency department for evaluation of hair loss and pain on the top of her scalp at the site where a crusting scabbing lesion is seen. Patient has been seen in this emergency department perhaps 7-8 times in the past for similar. She has previously used Lamisil terbinafine cream over the patches of hair loss. At times the hair loss has improved but when she stops using the cream it returns. She is been read advised to follow- up with dermatology multiple times. Patient states that she has but they will not tell her what is wrong with her scalp. She reports that she last used the terbinafine cream about 1 week ago but ran out. She denies a global headache Meding no nausea no abdominal pain or dysuria. It should be noted that she has a very flat affect and poor eye contact with her provider. She appears disheveled and her hygiene is poor. She denies that she is homeless and states that she is living at. She denies alcohol or substance abuse. She does endorse tobacco use Review of Systems Constitutional: denies: Fever, Chills Eyes: denies: Loss of vision Nose: denies: Rhinorrhea / runny nose, Congestion Throat: denies: Dental pain / toothache, Oral lesions / sores, Sore throat Cardiac: denies: Chest pain / pressure, Palpitations Respiratory: denies: Dyspnea, Cough GI: denies: Abdominal Pain, Abdominal Swelling, Nausea, Vomiting : denies: Dysuria, Frequency, Hesitancy Skin: reports: Rash, Lesions Musculoskeletal: denies: Neck pain, Back pain, Extremity pain, Joint swelling, Pain with weight bearing, Reviewed and negative PD PAST MEDICAL HISTORY - Past Medical History Cardiovascular: None Respiratory: None Neuro: None GI: Hepatitis : None HEENT: None Psych: None Musculoskeletal: None Derm: Other - Past Surgical History Past Surgical History: Yes General: Hiatal hernia repair 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 12/28/19 - Allergies Allergies/Adverse Reactions: Allergies Allergy/AdvReac Type Severity Reaction Status Date / Time Latex, Natural Rubber Allergy Rash Verified 12/28/19 13:23 Penicillins AdvReac Unknown Verified 12/28/19 13:23 - Social History Does the pt smoke?: Yes Smoking Status: Current every day smoker Does the pt drink ETOH?: Yes Does the pt have substance abuse?: Yes - Immunizations Immunizations are current?: Yes Immunizations: TDAP current <10years - POLST Patient has POLST: No PD ED PE EXPANDED - General General: Alert, No acute distress, Disheveled, poorly kept - HEENT HEENT: Atraumatic, PERRL, Moist mucous membranes, Pharynx normal - Eyes Eyes: PERRL, Normal accommodation - Neck Neck: Supple w/out meningeal sx, No tenderness. No: Stiff neck - Cardiac Cardiac: Regular Rate, Regular Rhythm, Radial strong equal, Pedal strong equal, Cap refill < 2 sec. No: Murmur Present - Respiratory Respiratory: Clear to ausultation zayra. No: Distress, Labored - Abdomen Abdomen: Normal Bowel sounds. No: Distended, Tender to palpation - Derm Derm: Normal color, Rash (Multiple flat circular lesions with central clearing on neck most consistent with a tinea infection), Other (large large 3X16 cm pact of hair loss top off occiput. some hair is regrowing, but smaller patches with hair loss mid shaft. Scabbing, yellow exudate ot top of occiput tender to touch withotu surrounding erythema, drainage) - Neuro Neuro: Alert and Oriented X 3, CNII-XII intact, CN deficit, Cerebellar nl, Normal gait, Normal finger nose, Normal speech. No: Confused, Nystagmus Results - Vitals Vitals: Vital Signs - 24 hr 12/28/19 13:23 Temperature 36.6 C Heart Rate 95 Respiratory 16 Rate Blood Pressure 130/81 H O2 Saturation 98 Oxygen O2 Source Room air PD MEDICAL DECISION MAKING - ED course Complexity details: reviewed old records, reviewed results, considered differential, d/w patient ED course: 44-year-old female comes to the emergency department for evaluation of the hair loss on the top of her scalp and a centralized scabbing lesion. She has been seen for this multiple times in the past and has at times had some improvement with terbinafine application. She has not used for more than a week since she ran out. She does report to me that she has seen a supervisor cloth winding but they will not do anything for her rash. At this time I have advised her that Lamisil is available [id number] without a prescription. I have also advised more consistent use of the cream as a infection as extensive as hers will likely take many many weeks if not months to fully eradicate. There does not appear to be any signs of cellulitis. At this time I will represcribed the Lamisil cream and she is stable for discharge home Departure - Departure Disposition: 01 Home, Self Care Clinical Impression: Tinea capitis Condition: Stable Record reviewed to determine appropriate education?: Yes Instructions: ED Ringworm Scalp Ch Prescriptions: Terbinafine HCl [Lamisil At] 30 gm TP BID #1 cream..g. Comments: The hair loss and the lesion on the top of your head is most consistent with a fungal infection or ringworm. Please apply the Lamisil twice a day for the next 4 to 6 weeks. It is only after the fungus has been fully eradicated that hair will return to normal growth.
== END 2019-12-28 13:56 | disposition home or self-care (01) ==
LOC: ED 13:18
DX: B35.0 Tinea barbae and tinea capitis (principal); L65.9 Nonscarring hair loss, unspecified; F17.200 Nicotine dependence, unspecified, uncomplicated
CPT/HCPCS: 99282; 99284

== ENCOUNTER 2020-01-25 08:11 | Emergency (ER) | payer MEDICAID ==
--- NOTE | 2020-01-25 08:47 | ED Physician Documentation ---
PD HPI SKIN - Stated complaint Stated Complaint: RT ARM SWELLING/REDNESS - Chief complaint Chief Complaint: Ext Problem - History obtained from History obtained from: Patient - History of Present Illness Timing - onset: How many weeks ago (has had some small sores on arms for weeks and now with several raised, red, fluctuant areas on forearms. Very painful.) Timing - duration: Weeks Timing - details: Gradual onset, Still present Location: RUE, LUE Quality / character: Painful, Discolored (red), Raised, Swelling. No: Vesicular, Draining Associated symptoms: Myalgias. No: Fever, Headache, Facial swelling Contributing factors: No: Recent illness Similar symptoms before: Diagnosis (abscesses) Recently seen: Not recently seen Review of Systems Constitutional: reports: Myalgias. denies: Fever Nose: denies: Rhinorrhea / runny nose, Congestion Throat: denies: Sore throat Cardiac: denies: Chest pain / pressure Respiratory: denies: Cough GI: reports: Nausea. 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 12/28/19 Chlorhexidine Gluconate [Hibiclens] 15 ml TP DAILY #236 ml 01/25/20 Hydrocodone/Acetaminophen 1 each PO Q6H PRN #15 tablet 01/25/20 [Hydrocodone-Acetamin 5-325 mg] Mupirocin 1 applic TP TID #15 g 01/25/20 Sulfamethox/Trimeth 800/160 1 each PO BID #20 tablet 01/25/20 [Bactrim Ds 800/160] - Allergies Allergies/Adverse Reactions: Allergies Allergy/AdvReac Type Severity Reaction Status Date / Time Latex, Natural Rubber Allergy Rash Verified 01/25/20 08:18 Penicillins AdvReac Unknown Verified 01/25/20 08:18 - Social History Does the pt smoke?: Yes Smoking Status: Current every day smoker Does the pt drink ETOH?: Yes Does the pt have substance abuse?: Yes - Immunizations Immunizations are current?: Yes Immunizations: TDAP current <10years - POLST Patient has POLST: No PD ED PE NORMAL - Vitals Vital signs reviewed: Yes - General General: Alert and oriented X 3, Well developed/nourished, Other (appears in pain due to arm lesions. ) - Neck Neck: Supple, no meningeal sign, No adenopathy - Cardiac Cardiac: RRR, No murmur - Respiratory Respiratory: Clear bilaterally - Abdomen Abdomen: Soft, Non tender - Derm Derm: Normal color, Warm and dry - Extremities Extremities: Other (forearms with multiple red lesions superficially. There are 3 areas on right and 1 on left that have 3-4 cm area of redness, tenderness, fluctuance c/w abscesses) - Neuro Neuro: Alert and oriented X 3, No motor deficit, No sensory deficit Results - Vitals Vitals: Vital Signs - 24 hr 01/25/20 01/25/20 08:18 11:17 Temperature 36.7 C 36.4 C L Heart Rate 101 H 100 Respiratory 18 16 Rate Blood Pressure 116/74 128/68 O2 Saturation 99 97 Oxygen O2 Source Room air - Labs Labs: Microbiology 01/25/20 10:09 Wound Culture - Preliminary Arm - Right Procedures - Abscess I&D (location) forearms Preparation: Lidocaine 1%, With epi Incision: Incised with scalpel, Purulent drainage, Other (3 on right forearm and 1 on left.) Other: Pt tolerated well, Dressing applied, Antibiotic prescribed (ss), Other PD MEDICAL DECISION MAKING - ED course Complexity details: considered differential, d/w patient Departure - Departure Disposition: 01 Home, Self Care Clinical Impression: Abscess of multiple sites of upper arm Condition: Stable Record reviewed to determine appropriate education?: Yes Instructions: ED Abscess IandD Prescriptions: Sulfamethox/Trimeth 800/160 [Bactrim Ds 800/160] 1 each PO BID #20 tablet Chlorhexidine Gluconate [Hibiclens] 15 ml TP DAILY #236 ml Hydrocodone/Acetaminophen [Hydrocodone-Acetamin 5-325 mg] 1 each PO Q6H PRN #15 tablet PRN Reason: Pain Mupirocin 1 applic TP TID #15 g Comments: Use the chlorhexidine body wash on your whole body daily to reduce chance of other areas of infection. Warm moist soaks or compresses to the abscesses area 2-3 times daily. Bactrim antibiotic twice daily for 10 days as directed. Mupirocin topical antibiotic to the sores area 2-3 times daily. Tylenol ibuprofen as needed for pains. Add hydrocodone if needed for worse pain. Follow-up in the next 2 to 3 days for recheck on how much better you are doing. If you do not have a primary care then you can return to the ER. Return to the ER sooner if generally worsening or you have fever vomiting or worsening sores. Discharge Date/Time: 01/25/20 11:19
[2020-01-25] MEDS ORDERED: HYDROmorphone 2 MG/ML VIAL IM STA (09:00)
[2020-01-25] MEDS ORDERED: SULFAMETH/TRIMETH DS 800/160 MG TABLET PO STA (09:00)
[2020-01-25] MEDS ORDERED: KETOROLAC 30 MG/ML VIAL IM STA (09:00)
[2020-01-25 11:19] VITALS: BP 128/68
== END 2020-01-25 11:19 | disposition home or self-care (01) ==
LOC: ED 08:11
DX: L02.414 Cutaneous abscess of left upper limb (principal); L02.413 Cutaneous abscess of right upper limb; F17.200 Nicotine dependence, unspecified, uncomplicated
CPT/HCPCS: 10061; 87070; 87205; 96372; 99283; 99284; A9270; J1170; 87181

== ENCOUNTER 2020-05-15 14:41 | Emergency (ER) | payer MEDICAID ==
[2020-05-15 14:52] VITALS: BP 157/133
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
== END 2020-05-15 16:28 | disposition home or self-care (01) ==
LOC: ED 14:41
DX: F63.89 Other impulse disorders (principal); F22 Delusional disorders; F40.218 Other animal type phobia; F15.90 Other stimulant use, unspecified, uncomplicated; F17.200 Nicotine dependence, unspecified, uncomplicated
CPT/HCPCS: 99281; 99284

== ENCOUNTER 2020-06-13 11:42 | Emergency (ER) | payer MEDICAID ==
[2020-06-13 11:48] VITALS: BP 132/73
[2020-06-13] MEDS ORDERED: BACITRACIN ZINC OINT 1 PACKET TOP STA (13:00)
--- NOTE | 2020-06-13 13:03 | ED Physician Documentation ---
History of Present Illness - Stated complaint Stated Complaint: SORE ON HEAD - Chief complaint Chief Complaint: Heent - History obtained from History obtained from: Patient - History of Present Illness Timing: Chronic Pain level max: 0 Pain level now: 0 - Additonal information Additional information: Patient is a 44-year-old female who regularly uses methamphetamines and has been seen here multiple times for skin picking. She states that that she has a wound to the top of her head. She states that she has no interest in stopping using methamphetamines. Does not want to go to rehab. No fevers. No chills. No vomiting. 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 - Present Medications Home Medications: Ambulatory Orders Medication Instructions Recorded Confirmed Chlorhexidine Gluconate [Hibiclens] 15 ml TP DAILY #236 ml 01/25/20 06/13/20 Mupirocin 1 applic TP TID #15 g 01/25/20 06/13/20 - Allergies Allergies/Adverse Reactions: Allergies Allergy/AdvReac Type Severity Reaction Status Date / Time Latex, Natural Rubber Allergy Rash Verified 06/13/20 11:45 Penicillins AdvReac Unknown Verified 06/13/20 11:45 - Social History Does the pt smoke?: Yes Smoking Status: Current every day smoker Does the pt drink ETOH?: Yes Does the pt have substance abuse?: No - Immunizations Immunizations are current?: Yes Immunizations: TDAP current <10years - POLST Patient has POLST: No PD ED PE NORMAL - Vitals Vital signs reviewed: Yes - General General: Alert and oriented X 3, No acute distress, Well developed/nourished - HEENT HEENT: PERRL, Moist mucous membranes, Other (Small abrasion to the top of the head. No bleeding. No signs of infection) - Neck Neck: Supple, no meningeal sign - Cardiac Cardiac: RRR - Respiratory Respiratory: No respiratory distress, Clear bilaterally - Derm Derm: Warm and dry - Neuro Neuro: Alert and oriented X 3 Results - Vitals Vitals: Vital Signs - 24 hr 06/13/20 11:45 Temperature 36.3 C L Heart Rate 91 Respiratory 16 Rate Blood Pressure 132/73 H O2 Saturation 97 Oxygen O2 Source Room air PD MEDICAL DECISION MAKING - ED course Complexity details: considered differential, d/w patient ED course: Patient with a small abrasion to the top of the head. No signs of infection. Bacitracin and bandage applied. Refuses social work. Refuses rehab. Patient counseled at length that her issues stem from her methamphetamine abuse. Patient counseled regarding signs and symptoms for which I believe and urgent re-evaluation would be necessary. Patient with good understanding of and agreement to plan and is comfortable going home at this time This document was made in part using voice recognition software. While efforts are made to proofread this document, sound alike and grammatical errors may occur. Departure - Departure Disposition: 01 Home, Self Care Clinical Impression: Abrasion, Compulsive skin picking, Methamphetamine abuse Condition: Good Instructions: ED Drug Abuse General Follow-Up: your,doctor in 1 week [Other] Comments: The abrasion on your head is from skin picking due to methamphetamine abuse. You need to stop using methamphetamines. You have refused rehab today. Keep the wound clean. Follow-up with your doctor for further care.
== END 2020-06-13 13:19 | disposition home or self-care (01) ==
LOC: ED 11:42
DX: S00.01XA Abrasion of scalp, initial encounter (principal); X58.XXXA Exposure to other specified factors, initial encounter; Y93.89 Activity, other specified; F42.4 Excoriation (skin-picking) disorder; F15.10 Other stimulant abuse, uncomplicated; F17.200 Nicotine dependence, unspecified, uncomplicated
CPT/HCPCS: 99282; A9270

== ENCOUNTER 2020-10-14 15:17 | Emergency (ER) | payer MEDICAID ==
--- OUTSIDE RECORDS SUMMARY | 2020-10-14 15:21 | EXTERNAL MEDICAL SUMMARY RPT | Continuity of Care Document ---
:1975 Demographics Phone Unavailable Preferred Language Ukrainian Marital Status Unknown Worship Affiliation Unknown Race Unknown Ethnic Group Unknown Author Organization [facility] Address [address] [place] [address] Phone Care Team Providers Name Role Phone Lanker Unavailable Unavailable Allergies Encounters Medications Problems Procedures date description facility [id number] [facility] Results Vital Signs date measurement value source 20200916 weight_standard 70.31 lb [id number] weight_metric 31.89 kg [id number] temperature_standard 97.5 F [id number] temperature_metric 36.39 C [id number] respiration_rate 16 /min [id number] height_standard 63 in [id number] height_metric 160.02 cm [id number] heart_rate 97 /min [id number] BP_systolic 139 mm[Hg] [id number] BP_diastolic 81 mm[Hg] [id number] BMI 27.4 kg/m2
--- OUTSIDE RECORDS SUMMARY | 2020-10-14 15:24 | EXTERNAL MEDICAL SUMMARY RPT | Continuity of Care Document ---
:1975 Demographics Phone Unavailable Preferred Language Amharic Marital Status Unknown Lutheran Affiliation Unknown Race Unknown Ethnic Group Unknown Author Organization [facility] Address [address] [place] [address] Phone Care Team Providers Name Role Phone Lanker Unavailable Unavailable Allergies Encounters Medications Problems Procedures date description facility [id number] [facility] Results Vital Signs date measurement value source 20200916 weight_standard 70.31 lb [id number] weight_metric 31.89 kg 38580884 temperature_standard 97.5 F 24085832 temperature_metric 36.39 C [id number] respiration_rate 16 /min 14835188 height_standard 63 in [id number] height_metric 160.02 cm 55641737 heart_rate 97 /min 91180240 BP_systolic 139 mm[Hg] 96223565 BP_diastolic 81 mm[Hg] [id number] BMI 27.4 kg/m2
[2020-10-14 17:04] VITALS: BP 118/89
--- NOTE | 2020-10-14 18:30 | ED Physician Documentation ---
History of Present Illness - Stated complaint Stated Complaint: HEAD RASH - Chief complaint Chief Complaint: General - Additonal information Additional information: 45-year-old female who is homeless and has a history of methamphetamine use comes to the ER requesting evaluation of hair loss on the top of her scalp. Many visits for similar previously treated for infections as well as tinea capitis. Patient has a flat blunt but somewhat angry affect. Poor eye contact. Review of Systems Constitutional: reports: Reviewed and negative Ears: reports: Loss of hearing Nose: reports: Reviewed and negative Cardiac: reports: Reviewed and negative Respiratory: reports: Reviewed and negative GI: reports: Reviewed and negative : reports: Reviewed and negative Skin: reports: Other (Skin picking top of scalp) PD PAST MEDICAL HISTORY - Past Medical History Cardiovascular: None Respiratory: None Neuro: None Endocrine/Autoimmune: None GI: Hepatitis : None HEENT: None Psych: None Musculoskeletal: None Derm: Other - Past Surgical History Past Surgical History: Yes General: Hiatal hernia repair 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, 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 - Present Medications Home Medications: Ambulatory Orders Medication Instructions Recorded Confirmed Miconazole Nitrate [Miconazole 3] 25 gm TOP BID #1 10/14/20 - Allergies Allergies/Adverse Reactions: Allergies Allergy/AdvReac Type Severity Reaction Status Date / Time Latex, Natural Rubber Allergy Rash Verified 10/14/20 15:28 Penicillins AdvReac Unknown Verified 10/14/20 15:28 - Social History Does the pt smoke?: Yes Smoking Status: Current every day smoker Does the pt drink ETOH?: Yes Does the pt have substance abuse?: No - Immunizations Immunizations are current?: Yes Immunizations: TDAP current <10years - POLST Patient has POLST: No PD ED PE EXPANDED - General General: Alert, No acute distress - Cardiac Cardiac: Regular Rate, Radial strong equal, Pedal strong equal, Cap refill < 2 sec - Respiratory Respiratory: Clear to ausultation zayra. No: Distress, Labored - Derm Derm: Pick silveria (Hair loss on the top of her scalp from the vertex to the top o f the occiput. Some hair shafts are broken in half but others appear to be plucked directly out. No surrounding erythema scaling patches or drainage.) Results - Vitals Vitals: Vital Signs - 24 hr 10/14/20 10/14/20 15:26 17:03 Temperature 36.6 C Heart Rate 95 91 Respiratory 16 16 Rate Blood Pressure 128/68 118/89 H O2 Saturation 98 100 Oxygen O2 Source Room air PD MEDICAL DECISION MAKING - ED course Complexity details: d/w patient ED course: 45-year-old female who has a history of methamphetamine use presents to the ER for evaluation of hair loss on the top of her scalp. She has previously been treated for tinea capitis as well as a superficial fungal infection and bacterial infection. However on exam today no infection appears to exist I am not terribly suspicious for tinea capitis and I do suspect Triklo conrado however patient is requesting prescription to help with the hair loss therefore I have prescribed miconazole and encourage close follow-up with her primary care provider. She is not interested in methamphetamine drug counseling or treatment. Departure - Departure Disposition: 01 Home, Self Care Clinical Impression: Alopecia Condition: Stable Record reviewed to determine appropriate education?: Yes Prescriptions: Miconazole Nitrate [Miconazole 3] 25 gm TOP BID #1 Comments: You do have some hair loss on the top of your head. It may be due to a fungal infection but it is also possible that you are absentmindedly picking at your head. Please follow-up with your primary doctor soon as possible. In the event that this is possibly a fungal infection please apply the miconazole cream to the top of your scalp twice a day for 2 to 3 weeks.
== END 2020-10-14 18:40 | disposition home or self-care (01) ==
LOC: ED 15:17
DX: L65.9 Nonscarring hair loss, unspecified (principal); Z59.0 Homelessness; F17.200 Nicotine dependence, unspecified, uncomplicated
CPT/HCPCS: 99282; 99283

== ENCOUNTER 2020-10-26 04:40 | Outpatient (CLI) | payer MEDICAID | END 2020-10-26 04:41 | disposition critical access hospital (66) | LOC: EMS 04:40 | DX: R51.9 Headache, unspecified (principal); R44.8 Other symptoms and signs involving general sensations and perceptions | CPT/HCPCS: A0425; A0429 ==

== ENCOUNTER 2020-10-26 05:05 | Emergency (ER) | payer MEDICAID ==
[2020-10-26 05:49] LABS: BASOPHILS % (AUTO) 0.5 %; EOSINOPHILS # (AUTO) 0.2 10^3/uL (0.0-0.7); EOSINOPHILS % (AUTO) 3.3 %; HCT - HEMATOCRIT 37.4 % (37.0-47.0); HGB - HEMOGLOBIN 12.2 g/dL (12.0-16.0); LYMPHOCYTES # (AUTO) 2.5 10^3/uL (1.5-3.5); LYMPHOCYTES % (AUTO) 34.3 %; MEAN CORPUSCULAR HEMOGLOBIN 29.2 pg (27.0-31.0); MEAN CORPUSCULAR HGB CONC 32.6 g/dL (32.0-36.0); MEAN CORPUSCULAR VOLUME 89.5 fL (81.0-99.0); MEAN PLATELET VOLUME 9.1 fL (7.9-10.8); MONOCYTES # (AUTO) 0.4 10^3/uL (0.0-1.0); MONOCYTES % (AUTO) 5.1 %; NEUTROPHILS # (AUTO) 4.1 10^3/uL (1.5-6.6); NEUTROPHILS % (AUTO) 56.5 %; PLT - PLATELET COUNT 283 10^3/uL (130-450); RED BLOOD COUNT 4.18 10^6/uL (4.20-5.40); RED CELL DISTRIBUTION WIDTH 13.2 % (12.0-15.0); WHITE BLOOD COUNT 7.3 x10^3/uL (4.8-10.8)
[2020-10-26 06:02] LABS: ACETAMINOPHEN < 10 ug/mL (10-30); BUN - BLOOD UREA NITROGEN 26 mg/dL (6-20); CALCIUM 8.7 mg/dL (8.5-10.3); CARBON DIOXIDE - CO2 26 mmol/L (21-32); CHLORIDE 102 mmol/L (101-111); CREATININE 0.8 mg/dL (0.4-1.0); ETOH - ETHANOL < 5.0 mg/dL; GFR - MDRD 77 (>89); GLUCOSE 148 mg/dL (70-100); POTASSIUM 3.8 mmol/L (3.5-5.0); SALICYLATE < 6.0 mg/dL; SODIUM 137 mmol/L (135-145)
--- NOTE | 2020-10-26 06:06 | ED Physician Documentation ---
PD HPI MHE - Stated complaint Stated Complaint: MHE - Chief complaint Chief Complaint: MHE - History obtained from History obtained from: Patient, EMS - History of Present Illness Primary symptom: Psychosis (The patient was apparently wandering and incoherently talking. Has scalp itching. Stated to EMS she thought she was shot in the head. Also complains of feeling of bugs under her skin. Brought by EMS for further evaluation.) Timing - onset: Today (with the head pain. Has had feeling of itching of skin, concern for infection group home.) Contributing factors: Substance abuse - drugs Recently seen: Emergency Dept (for scalp itching) Review of Systems Constitutional: denies: Fever, Chills Nose: denies: Rhinorrhea / runny nose, Congestion Throat: denies: Sore throat Cardiac: denies: Chest pain / pressure Respiratory: denies: Cough GI: denies: Abdominal Pain, Nausea, Vomiting, Diarrhea Skin: denies: Rash Neurologic: denies: Generalized weakness, Altered mental status, Head injury PD PAST MEDICAL HISTORY - Past Medical History Past Medical History: Yes Cardiovascular: None Respiratory: None Neuro: None Endocrine/Autoimmune: None GI: Hepatitis : None HEENT: None Psych: None Musculoskeletal: None Derm: Other - Past Surgical History Past Surgical History: Yes General: Hiatal hernia repair 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, 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 - Present Medications Home Medications: Ambulatory Orders Medication Instructions Recorded Confirmed Miconazole Nitrate [Miconazole 3] 25 gm TOP BID #1 10/14/20 - Allergies Allergies/Adverse Reactions: Allergies Allergy/AdvReac Type Severity Reaction Status Date / Time Latex, Natural Rubber Allergy Rash Verified 10/26/20 05:17 Penicillins AdvReac Unknown Verified 10/26/20 05:17 - Living Situation Living Situation: reports: Alone Living Arrangement: reports: Homeless - Social History Does the pt smoke?: Yes Smoking Status: Current every day smoker Does the pt drink ETOH?: Yes Does the pt have substance abuse?: Yes - Immunizations Immunizations are current?: Yes Immunizations: TDAP current <10years - POLST Patient has POLST: No PD ED PE NORMAL - Vitals Vital signs reviewed: Yes - General General: Alert and oriented X 3, Well developed/nourished (but is unkempt with dirty skin and feet, dry skin on feet and toes. No signs of infection. bumps on both arms c/w scarring and presume prior skin infections. No active appearing lesions. Several scratch silveira from itching. ), Other (somewhat mumbling to herself, but is able to answer questions appropriately. Has belief there are bugs under her skin diffusely, particularly frontal scalp. ) - HEENT HEENT: Pharynx benign - Neck Neck: Supple, no meningeal sign, No adenopathy - Cardiac Cardiac: RRR, No murmur - Respiratory Respiratory: Clear bilaterally - Abdomen Abdomen: Soft, Non tender - Derm Derm: Normal color, Warm and dry, Other (scalp with shortened hair in patch of uneven length c/w scratching/breaking hair. The scalp does not appear infection nor inflammation. Superficial excoriation noted. Scratching silveira on arms and around tops of feet. ) Results - Vitals Vitals: Vital Signs - 24 hr 10/26/20 10/26/20 05:11 08:14 Temperature 36.6 C 36.2 C L Heart Rate 88 84 Respiratory 16 16 Rate Blood Pressure 134/89 H 129/74 O2 Saturation 100 99 Oxygen O2 Source Room air - Labs Labs: Laboratory Tests 10/26/20 10/26/20 10/26/20 05:40 05:40 05:40 WBC 7.3 RBC 4.18 L Hgb 12.2 Hct 37.4 MCV 89.5 MCH 29.2 MCHC 32.6 RDW 13.2 Plt Count 283 MPV 9.1 Neut # (Auto) 4.1 Lymph # (Auto) 2.5 [place] # (Auto) 0.4 Eos # (Auto) 0.2 Baso # (Auto) 0.0 Absolute Nucleated RBC 0.00 Nucleated RBC % 0.0 Sodium 137 Potassium 3.8 Chloride 102 Carbon Dioxide 26 Anion Gap 9.0 BUN 26 H Creatinine 0.8 Estimated GFR (MDRD) 77 L Glucose 148 H Calcium 8.7 TSH 5.27 Salicylates < 6.0 Acetaminophen < 10 L Ethyl Alcohol < 5.0 PD MEDICAL DECISION MAKING - ED course Complexity details: re-evaluated patient (patient left the ER prior to SW. I anish not see need for having her returned. ), considered differential (patient having some confusion. Seems likely drug use but has not given urine for tox screen as yet. She is not expressing any self harm ideation. Seems capable of caring for herself. Can have SW assess for possible drug treatment or detox. ), d/w patient Departure - Departure Disposition: ED [place] Clinical Impression: Delusions of parasitosis, Anxiety Condition: Stable Record reviewed to determine appropriate education?: Yes Discharge Date/Time: 10/26/20 09:26
[2020-10-26] MEDS ORDERED: hydrOXYzine PAMOATE 25 MG CAPSULE PO STA (06:40)
[2020-10-26 08:14] VITALS: BP 129/74
== END 2020-10-26 09:26 | disposition left against medical advice (07) ==
LOC: EDUNIT# → ED 05:05
DX: F22 Delusional disorders (principal); F41.9 Anxiety disorder, unspecified; F17.200 Nicotine dependence, unspecified, uncomplicated
CPT/HCPCS: 36415; 80048; 80307; 80320; 80329; 84443; 85025; 99283; 99284; A9270

== ENCOUNTER 2020-12-02 19:15 | Emergency (ER) | payer MEDICAID ==
[2020-12-02] MEDS ORDERED: LIDOCAINE 1%-EPI 1:100000 20 ML MDV SUBQ STA (19:37)
[2020-12-02] MEDS ORDERED: CLINDAMYCIN 150 MG CAPSULE PO STA (20:02)
--- NOTE | 2020-12-02 20:03 | ED Physician Documentation ---
History of Present Illness - Stated complaint Stated Complaint: HEAD STINGING - Chief complaint Chief Complaint: General - History obtained from History obtained from: Patient - History of Present Illness Timing: Today Pain level max: 0 Pain level now: 0 - Additonal information Additional information: Patient is a 45-year-old female who presents to the emergency department with 2 issues, the first is redness and swelling to the lateral aspect of the upper left arm. She states she has had abscesses in the past and this feels similar. The second is she felt like her head was stinging. She is currently being treated for a fungal infection on her scalp. She states she was picking berries today and felt stinging. The stinging has now resolved. No fevers. No chills. Nothing makes it better or worse.Patient also denies any drug use. 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 - Present Medications Home Medications: Ambulatory Orders Medication Instructions Recorded Confirmed Miconazole Nitrate [Miconazole 3] 25 gm TOP BID #1 10/14/20 clindamycin HCL [Cleocin HCl] 300 mg PO Q6H #40 cap 12/02/20 - Allergies Allergies/Adverse Reactions: Allergies Allergy/AdvReac Type Severity Reaction Status Date / Time Latex, Natural Rubber Allergy Rash Verified 12/02/20 19:18 Penicillins AdvReac Unknown Verified 12/02/20 19:18 - Social History Does the pt smoke?: Yes Smoking Status: Current every day smoker Does the pt drink ETOH?: Yes Does the pt have substance abuse?: No - Immunizations Immunizations are current?: Yes Immunizations: TDAP current <10years - POLST Patient has POLST: No PD ED PE NORMAL - Vitals Vital signs reviewed: Yes - General General: Alert and oriented X 3, No acute distress - Derm Derm: Warm and dry - Neuro Neuro: Alert and oriented X 3 - Psych Psych: Normal mood, Normal affect - Free text exam Free text exam: 1 x 1 cm abscess to the left upper extremity. Erythema and fluctuance present. Confirmed with ultrasound. It is on the lateral aspect of the mid upper arm. Patient also has scaling to the scalp. No drainage. No purulence. Results - Vitals Vitals: Vital Signs - 24 hr 12/02/20 12/02/20 19:18 20:11 Temperature 36.5 C 36.4 C L Heart Rate 88 90 Respiratory 16 16 Rate Blood Pressure 150/88 H 134/86 H O2 Saturation 98 100 Oxygen O2 Source Room air - Labs Labs: Microbiology 12/02/20 20:00 Wound Culture - Preliminary Abscess Procedures - Abscess I&D (location) L arm Preparation: Confirmed with ultrasound, Lidocaine 1% Incision: Incised with scalpel, Purulent drainage, Irrigated, Culture obtained Other: Pt tolerated well, Dressing applied, Antibiotic prescribed PD MEDICAL DECISION MAKING - ED course Complexity details: considered differential, d/w patient ED course: 45-year-old female, her scalp appears unchanged from prior exams. She does have an abscess on her left arm with a mild amount of cellulitis. This was incised and drained. We will place her on clindamycin. Patient counseled regarding signs and symptoms for which I believe and urgent re-evaluation would be necessary. Patient with good understanding of and agreement to plan and is comfortable going home at this time This document was made in part using voice recognition software. While efforts are made to proofread this document, sound alike and grammatical errors may occur. Departure - Departure Disposition: 01 Home, Self Care Clinical Impression: Abscess, Tinea capitis Condition: Good Instructions: ED Abscess IandD Follow-Up: your,doctor in 3 days [Other] Prescriptions: clindamycin HCL [Cleocin HCl] 300 mg PO Q6H #40 cap Comments: Follow-up with your doctor for further care. You should have your wound rechecked in about 3 days, if this cannot be done with your doctor, please return here for further evaluation. Discharge Date/Time: 12/02/20 20:15
[2020-12-02 20:12] VITALS: BP 134/86
== END 2020-12-02 20:15 | disposition home or self-care (01) ==
LOC: ED 19:15
DX: B35.0 Tinea barbae and tinea capitis (principal); L03.114 Cellulitis of left upper limb; F17.200 Nicotine dependence, unspecified, uncomplicated
CPT/HCPCS: 10060; 87070; 87205; 99283; A9270

== ENCOUNTER 2020-12-08 19:06 | Emergency (ER) | payer MEDICAID ==
[2020-12-08 19:14] VITALS: BP 115/88
--- NOTE | 2020-12-08 19:41 | ED Physician Documentation ---
History of Present Illness - Stated complaint Stated Complaint: HEAD WOUND - Chief complaint Chief Complaint: Wound - Additonal information Additional information: 45-year-old female who is homeless and has a history of methamphetamine abuse presents emergency department for reevaluation of hair loss on the top of her scalp as well as a shallow ulceration. She has a history of skin picking. She is certain that this is a scabies or mites infection. She has been treated multiple times with courses of ivermectin as well as antifungals but her significant other in attendance at the bedside reports to me that she is constantly picking at the skin and hair on the top of her head. She has been unable to establish with a primary care provider. She is not interested in drug resources this evening. 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 - Present Medications Home Medications: Ambulatory Orders Medication Instructions Recorded Confirmed clindamycin HCL [Cleocin HCl] 300 mg PO Q6H #40 cap 12/02/20 12/08/20 Mupirocin 2% Oint [Bactroban 2% 1 applic TOP BID #22 gm 12/08/20 Oint] - Allergies Allergies/Adverse Reactions: Allergies Allergy/AdvReac Type Severity Reaction Status Date / Time Latex, Natural Rubber Allergy Rash Verified 12/08/20 19:10 Penicillins AdvReac Unknown Verified 12/08/20 19:10 - Social History Does the pt smoke?: Yes Smoking Status: Current every day smoker Does the pt drink ETOH?: Yes Does the pt have substance abuse?: No - Immunizations Immunizations are current?: Yes Immunizations: TDAP current <10years - POLST Patient has POLST: No PD ED PE EXPANDED - General General: Alert, No acute distress, Disheveled, poorly kept - HEENT HEENT: Other (1 x 3 inch linear lesion on the vertex of her scalp where she has picked at her hair. Central to this is a shallow ulceration with of red dermis exposed. No surrounding erythema or drainage.) Results - Vitals Vitals: Vital Signs - 24 hr 12/08/20 19:11 Temperature 36.2 C L Heart Rate 84 Respiratory 18 Rate Blood Pressure 115/88 H O2 Saturation 100 Oxygen O2 Source Room air PD MEDICAL DECISION MAKING - ED course Complexity details: d/w patient, d/w family ED course: 45-year-old female who has a history of methamphetamine abuse as well as skin picking presents the emergency department requesting reevaluation of the hair loss on the top of her scalp where she picks. There is a shallow ulceration but no secondary findings of infection. Mupirocin ointment will be prescribed. Patient was not interested in drug resources today. Departure - Departure Disposition: 01 Home, Self Care Clinical Impression: Compulsive skin picking, Scalp abrasion, non-infected Condition: Stable Record reviewed to determine appropriate education?: Yes Prescriptions: Mupirocin 2% Oint [Bactroban 2% Oint] 1 applic TOP BID #22 gm Comments: Mistala the hair on the top of your head is missing because you pick at it. There is no signs of a bacterial or mite infection. If you can please stop picking at your scalp. I have prescribed mupirocin ointment to help with this shallow ulceration heal. It is very important that you schedule with a primary care doctor for longer- term follow-up of this.
== END 2020-12-08 19:54 | disposition home or self-care (01) ==
LOC: ED 19:06
DX: F42.4 Excoriation (skin-picking) disorder (principal); F17.200 Nicotine dependence, unspecified, uncomplicated
CPT/HCPCS: 99282; 99283

== ENCOUNTER 2021-02-12 08:36 | Emergency (ER) | payer MEDICAID ==
[2021-02-12 08:48] VITALS: BP 127/82
--- NOTE | 2021-02-12 08:50 | ED Physician Documentation ---
PD HPI SKIN - Stated complaint Stated Complaint: LT ARM PX - Chief complaint Chief Complaint: Ext Problem - History obtained from History obtained from: Patient - History of Present Illness Timing - onset: How many days ago (2-3) Timing - duration: Days (2-3) Timing - details: Abrupt onset, Still present Location: LUE Quality / character: Painful, Swelling Associated symptoms: No: Fever, Myalgias Similar symptoms before: Diagnosis (skin abscesses remote past from drug injections. Has not used IV drugs for years, per patient.) Recently seen: Not recently seen Review of Systems Constitutional: denies: Fever, Chills Nose: denies: Rhinorrhea / runny nose, Congestion Throat: denies: Sore throat Respiratory: denies: Cough Skin: reports: Rash (scalp itching with feeling of bugs crawling under skin frontal scalp.) Neurologic: denies: Focal weakness, Numbness PD PAST MEDICAL HISTORY - Past Medical History Cardiovascular: None Respiratory: None Neuro: None Endocrine/Autoimmune: None GI: Hepatitis : None HEENT: None Psych: None Musculoskeletal: None Derm: Other - Past Surgical History Past Surgical History: Yes General: Hiatal hernia repair 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, 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 - Present Medications Home Medications: Ambulatory Orders Medication Instructions Recorded Confirmed clindamycin HCL [Cleocin HCl] 300 mg PO Q6H #40 cap 12/02/20 12/08/20 Mupirocin 2% Oint [Bactroban 2% 1 applic TOP BID #22 gm 12/08/20 Oint] Chlorhexidine Gluconate [Hibiclens] 15 ml TP DAILY #236 ml 02/12/21 Doxycycline Hyclate 100 mg PO BID 7 Days #14 tab 02/12/21 HYDROcod/ACETAM 5/325 [[place] 5/325] 1 ea PO Q6H PRN #14 tablet 02/12/21 Mupirocin 2% Oint [Bactroban 2% 1 applic TOP BID #50 gm 02/12/21 Oint] - Allergies Allergies/Adverse Reactions: Allergies Allergy/AdvReac Type Severity Reaction Status Date / Time Latex, Natural Rubber Allergy Rash Verified 02/12/21 08:47 Penicillins AdvReac Unknown Verified 02/12/21 08:47 - Social History Does the pt smoke?: Yes Smoking Status: Current every day smoker Does the pt drink ETOH?: Yes Does the pt have substance abuse?: No - Immunizations Immunizations are current?: Yes Immunizations: TDAP current <10years - POLST Patient has POLST: No PD ED PE NORMAL - Vitals Vital signs reviewed: Yes - General General: Alert and oriented X 3, Well developed/nourished - Cardiac Cardiac: RRR, No murmur - Respiratory Respiratory: Clear bilaterally - Derm Derm: Normal color, Warm and dry - Extremities Extremities: Other (left upper arm laterally with area of redness and swelling with induration and some fluctuance. SMall hole in skin with slight drainage of pus with palpation. Lower to that is 2-3 cm area of redness and swelling. No skin sores. ) - Neuro Neuro: Alert and oriented X 3, No motor deficit, No sensory deficit, Normal speech Results - Vitals Vitals: Vital Signs - 24 hr 02/12/21 08:44 Temperature 36.0 C L Heart Rate 94 Respiratory 16 Rate Blood Pressure 127/82 H O2 Saturation 100 Oxygen O2 Source Room air - Labs Labs: Microbiology 02/12/21 09:06 Wound Culture - Preliminary Arm - Left Procedures - Abscess I&D (location) left upper arm laterally Preparation: Lidocaine 1%, With epi Incision: Incised with scalpel, Irrigated, Culture obtained Other: Pt tolerated well, Dressing applied, Antibiotic prescribed PD MEDICAL DECISION MAKING - ED course Complexity details: considered differential (skin abcess with some drainage but not readily. ), d/w patient Departure - Departure Disposition: 01 Home, Self Care Clinical Impression: Abscess of upper arm Condition: Stable Record reviewed to determine appropriate education?: Yes Instructions: ED Abscess IandD Follow-Up: Leoncio Galeano PA [Primary Care Provider] - Prescriptions: Mupirocin 2% Oint [Bactroban 2% Oint] 1 applic TOP BID #50 gm Doxycycline Hyclate 100 mg PO BID 7 Days #14 tab Chlorhexidine Gluconate [Hibiclens] 15 ml TP DAILY #236 ml HYDROcod/ACETAM 5/325 [[place] 5/325] 1 ea PO Q6H PRN #14 tablet PRN Reason: Pain Comments: Warm moist compresses or soaks for the arm abscesses to promote further drainage. Doxycycline antibiotic twice daily for a week for the infections. Use chlorhex idine body wash on your scalp and body to reduce the germs on the outside to prevent or reduce other areas developing. To it once daily for the next several days to week and then every few days after that. Mupirocin ointment lightly around the abscesses area. You can use it on your scalp as well to help with any irritation there. Tylenol or ibuprofen if needed for pains. Add hydrocodone if needed for worse pain in the short-term as these infections can be quite painful. Recheck if not improved well over the next several days. Transmitted your prescriptions to [facility] in [place]. I am prescribing a short course of narcotic pain medication for you. These are potentially dangerous and addictive medications that should be used carefully. These medications may constipate you. Take an [id number] stool softener such as docusate twice daily with plenty of water while taking these medications. If you go 24 hours without a bowel movement, take [id number] MiraLAX, per package instructions. Do not drink or drive while taking these medications. If you received narcotic or sedating medications while in the emergency department do not drive for 24 hours. Store this medication in a safe, secure place and out of reach of children. It is a violation of federal law to give or sell this medication to another person or to use in a manner other than prescribed. The ED will not refill narcotic prescriptions, including prescriptions lost or stolen. You can dispose of unwanted medications at the [facility]'s office or at several pharmacies such as [facility]. Discharge Date/Time: 02/12/21 10:14
[2021-02-12] MEDS ORDERED: DOXYCYCLINE 100 MG TABLET PO STA (09:11)
[2021-02-12] MEDS ORDERED: HYDROcod/ACETAM 5/325 MG TABLET PO STA (09:11)
[2021-02-12] MEDS ORDERED: LIDOCAINE 1%-EPI 1:100000 20 ML MDV SUBQ STA (09:12)
== END 2021-02-12 10:14 | disposition home or self-care (01) ==
LOC: ED 08:36
DX: L02.414 Cutaneous abscess of left upper limb (principal); F17.200 Nicotine dependence, unspecified, uncomplicated
CPT/HCPCS: 10060; 87070; 87205; 99283; 99284; A9270; 87181

== ENCOUNTER 2021-08-13 22:02 | Emergency (ER) | payer MEDICAID ==
[2021-08-13 22:12] VITALS: BP 130/87
== END 2021-08-13 23:17 | disposition left against medical advice (07) ==
LOC: ED 22:02
DX: Z53.21 Procedure and treatment not carried out due to patient leaving prior to being seen by health care provider (principal)

== ENCOUNTER 2022-01-21 17:20 | Emergency (ER) | payer MEDICAID ==
--- OUTSIDE RECORDS SUMMARY | 2022-01-21 17:34 | EXTERNAL MEDICAL SUMMARY RPT | Continuity of Care Document ---
:1975 Author Organization [facility] Address [address] [place] [address] Phone Allergies and Intolerances date description facility type (no date) [facility] (unknown) (no date) latex [facility] (unknown) Encounters No information. Functional Status No information. Immunizations No information. Medications No information. Problems No information. Procedures No information. Results/Labs test date author facility value unit interpret ation Result panel 1 (unknown) (no (unknown) (unknown) (no value) (units (unk nown) date) unknown) (unknown) (no (unknown) (unknown) Date of Service: (units (unknown) date) 12/21/21 unknown) (unknown) (no (unknown) (unknown) (no value) (units (unk nown) date) unknown) (unknown) (no (unknown) (unknown) <Electronically (units (unknown) date) signed by Jeff unknown) MD Shweta> (unknown) (no (unknown) (unknown) 12/21/212057 (units ( unknown) date) unknown) (unknown) (no (unknown) (unknown) 1 applic topical (units (unknown) date) BID 14 Days Qty: 60 unknown) 0RF (unknown) (no (unknown) (unknown) 1-2 caps h.s. Stop (units (unknown) date) Doxepin unknown) (unknown) (no (unknown) (unknown) 100 mg PO BID Qty: (units (unknown) date) 20 0RF unknown) (unknown) (no (unknown) (unknown) 50 mg PO QID PRN (units (unknown) date) (Reason: unknown) itching/sleep) Qty: 10 0RF (unknown) (no (unknown) (unknown) 60 ml TOP ONCE (units (unknown) date) Qty: 118 0RF unknown) (unknown) (no (unknown) (unknown) Allergies (units (unkn own) date) unknown) (unknown) (no (unknown) (unknown) Emergency Report (units (unknown) date) unknown) (unknown) (no (unknown) (unknown) [facility] (units (unknown) date) [address] unknown) [place] [address] (unknown) (no (unknown) (unknown) Previous Rx's (units ( unknown) date) unknown) (unknown) (no (unknown) (unknown) Rx Instructions: (units (unknown) date) unknown) (unknown) (no (unknown) (unknown) Vital Signs - 8 hr (units (unknown) date) unknown) (unknown) (no (unknown) (unknown) apply to hair and (units (unknown) date) leave on for 10 unknown) mins before removing (unknown) (no (unknown) (unknown) irritated (units (unkn own) date) unknown) (unknown) (no (unknown) (unknown) skin (units (unkno wn) date) unknown) (unknown) (no (unknown) (unknown) (no value) (units (unk nown) date) unknown) (unknown) (no (unknown) (unknown) MR#: [id number] (units (unknown) date) unknown) (unknown) (no (unknown) (unknown) doxycycline (units (un known) date) hyclate 100 mg unknown) tablet (unknown) (no (unknown) (unknown) hydroxyzine (units (un known) date) pamoate [Vistaril] unknown) 50 mg capsule (unknown) (no (unknown) (unknown) permethrin 1 % (units (unknown) date) liquid unknown) (unknown) (no (unknown) (unknown) triamcinolone (units ( unknown) date) acetonide 0.025 % unknown) lotion (unknown) (no (unknown) (unknown) 12/21/21 (units (unkno wn) date) unknown) (unknown) (no (unknown) (unknown) Medication (units (unk nown) date) Instructions unknown) Recorded (unknown) (no (unknown) (unknown) Skin rash (units (unkn own) date) unknown) (unknown) (no (unknown) (unknown) (Vistaril) caps (units (unknown) date) unknown) (unknown) (no (unknown) (unknown) 17:50 (units (unkno wn) date) unknown) (unknown) (no (unknown) (unknown) Activity (units (unkno wn) date) Restrictions/Additi unknown) onal Instructions: (unknown) (no (unknown) (unknown) Age/Sex: 46 / F (units (unknown) date) unknown) (unknown) (no (unknown) (unknown) Allergy/AdvReac (units (unknown) date) Type Severity unknown) Reaction Status Date / Time (unknown) (no (unknown) (unknown) Anxiety (units (unkno wn) date) unknown) (unknown) (no (unknown) (unknown) BACK: Normal (units (u nknown) date) inspection, no CVA unknown) tenderness. (unknown) (no (unknown) (unknown) Blood Pressure (units (unknown) date) 136/82 12/21/21 unknown) 17:50 (unknown) (no (unknown) (unknown) Blood Pressure (units (unknown) date) unknown) (unknown) (no (unknown) (unknown) CARDIOVASCULAR: (units (unknown) date) Normal rate and unknown) rhythm without murmur gallop or rub. (unknown) (no (unknown) (unknown) Chief Complaint: (units (unknown) date) Wound/Laceration unknown) (unknown) (no (unknown) (unknown) Clinical (units (unkno wn) date) Impression: unknown) (unknown) (no (unknown) (unknown) Complete review of (units (unknown) date) systems is negative unknown) other than as noted above. (unknown) (no (unknown) (unknown) Course (units (unkno wn) date) unknown) (unknown) (no (unknown) (unknown) : 1975 (units (unknown) date) Acct:[id number] unknown) (unknown) (no (unknown) (unknown) Departure (units (unkn own) date) unknown) (unknown) (no (unknown) (unknown) Discharge Plan (units (unknown) date) unknown) (unknown) (no (unknown) (unknown) ENT: No (units (unkno wn) date) rhinorrhea. unknown) Oropharynx is moist. Mouth exam is benign. (unknown) (no (unknown) (unknown) ER Physician: (units ( unknown) date) Jeff Rock MD unknown) (unknown) (no (unknown) (unknown) EXTREMITIES: No (units (unknown) date) edema, full range unknown) of motion. No obvious trauma. (unknown) (no (unknown) (unknown) EYES: Sclera are (units (unknown) date) clear without unknown) icterus. Extraocular movements are full. (unknown) (no (unknown) (unknown) Exam (units (unkno wn) date) unknown) (unknown) (no (unknown) (unknown) Exam Narrative: (units (unknown) date) unknown) (unknown) (no (unknown) (unknown) GASTROINTESTINAL: (units (unknown) date) Abdomen soft, unknown) non-tender, nondistended. (unknown) (no (unknown) (unknown) GENERAL: Alert, (units (unknown) date) cooperative and in unknown) no distress. (unknown) (no (unknown) (unknown) General (units (unkno wn) date) unknown) (unknown) (no (unknown) (unknown) HEAD: Atraumatic. (units (unknown) date) Normocephalic. I unknown) put the scalp examination up in the HPI, (unknown) (no (unknown) (unknown) HPI - (units (unkno wn) date) Wound/Laceration unknown) (unknown) (no (unknown) (unknown) HPI narrative: (units (unknown) date) unknown) (unknown) (no (unknown) (unknown) Hepatitis C (units (un known) date) unknown) (unknown) (no (unknown) (unknown) History of Present (units (unknown) date) Illness unknown) (unknown) (no (unknown) (unknown) I am sorry the ear (units (unknown) date) struggling with unknown) this skin problem for so long. Clearly it is (unknown) (no (unknown) (unknown) Initial Vital (units ( unknown) date) Signs unknown) (unknown) (no (unknown) (unknown) Initial Vital (units ( unknown) date) Signs: unknown) (unknown) (no (unknown) (unknown) Itching (units (unkno wn) date) unknown) (unknown) (no (unknown) (unknown) MDM - (units (unkno wn) date) Wound/Laceration unknown) (unknown) (no (unknown) (unknown) MDM Narrative (units ( unknown) date) unknown) (unknown) (no (unknown) (unknown) Medical History (units (unknown) date) (Reviewed 09/17/20 unknown) @ 01:33 by Trevin Dowling DO) (unknown) (no (unknown) (unknown) Medical decision (units (unknown) date) making narrative: unknown) (unknown) (no (unknown) (unknown) Mode of arrival: (units (unknown) date) Ambulatory unknown) (unknown) (no (unknown) (unknown) NECK: Supple. Full (units (unknown) date) range of motion. unknown) (unknown) (no (unknown) (unknown) NEURO: Nonfocal (units (unknown) date) examination, normal unknown) speech, normal gait. (unknown) (no (unknown) (unknown) Narrative (units (unkn own) date) unknown) (unknown) (no (unknown) (unknown) Narrative: (units (unk nown) date) unknown) (unknown) (no (unknown) (unknown) New (units (unkno wn) date) unknown) (unknown) (no (unknown) (unknown) No Action (units (unkn own) date) unknown) (unknown) (no (unknown) (unknown) Oxygen Delivery (units (unknown) date) Method 12/21/21 unknown) 17:50 (unknown) (no (unknown) (unknown) Oxygen Delivery (units (unknown) date) Method Room Air unknown) (unknown) (no (unknown) (unknown) PSYCH: Normally (units (unknown) date) oriented. Normal unknown) range of affect. Appropriate behavior (unknown) (no (unknown) (unknown) Patient (units (unkno wn) date) Disposition: Home unknown) (unknown) (no (unknown) (unknown) Patient History (units (unknown) date) unknown) (unknown) (no (unknown) (unknown) Patient: Ghassan (units (unknown) date) Manuel Ardon D unknown) (unknown) (no (unknown) (unknown) Penicillins (units (un known) date) Allergy Verified unknown) 12/19/21 20:33 (unknown) (no (unknown) (unknown) Prescriptions: (units (unknown) date) unknown) (unknown) (no (unknown) (unknown) Pulse Oximetry 99 (units (unknown) date) 12/21/21 17:50 unknown) (unknown) (no (unknown) (unknown) Pulse Oximetry 99 (units (unknown) date) unknown) (unknown) (no (unknown) (unknown) Pulse Rate 93 H (units (unknown) date) 12/21/21 17:50 unknown) (unknown) (no (unknown) (unknown) Pulse Rate 93 H (units (unknown) date) unknown) (unknown) (no (unknown) (unknown) RESPIRATORY: Clear (units (unknown) date) to auscultation. unknown) Breath sounds equal bilaterally. No wheezes, (unknown) (no (unknown) (unknown) Related Data (units (u nknown) date) unknown) (unknown) (no (unknown) (unknown) Respiratory Rate (units (unknown) date) 20 12/21/21 17:50 unknown) (unknown) (no (unknown) (unknown) Respiratory Rate (units (unknown) date) 20 unknown) (unknown) (no (unknown) (unknown) Review of Systems (units (unknown) date) unknown) (unknown) (no (unknown) (unknown) SKIN: No rash or (units (unknown) date) erythema of visible unknown) areas (unknown) (no (unknown) (unknown) Signed By: (units (unk nown) date) unknown) (unknown) (no (unknown) (unknown) Skin rash (units (unkn own) date) unknown) (unknown) (no (unknown) (unknown) Smoking Status: (units (unknown) date) Current every day unknown) smoker (unknown) (no (unknown) (unknown) Smoking Status: (units (unknown) date) Current every day unknown) smoker (unknown) (no (unknown) (unknown) Social History (units (unknown) date) (Reviewed 09/17/20 unknown) @ 01:33 by Trevin Dowling DO) (unknown) (no (unknown) (unknown) Source: patient (units (unknown) date) unknown) (unknown) (no (unknown) (unknown) Stated Complaint: (units (unknown) date) Pain on top of head unknown) (unknown) (no (unknown) (unknown) Status post (units (un known) date) unknown) (unknown) (no (unknown) (unknown) Status post tubal (units (unknown) date) ligation unknown) (unknown) (no (unknown) (unknown) Substance Use (units ( unknown) date) Type: does not use unknown) (unknown) (no (unknown) (unknown) Surgical History (units (unknown) date) (Reviewed 10/12/19 unknown) @ 03:36 by Chin Tejada DO) (unknown) (no (unknown) (unknown) Temperature 96.9 F (units (unknown) date) L 12/21/21 17:50 unknown) (unknown) (no (unknown) (unknown) Temperature 96.9 F (units (unknown) date) L unknown) (unknown) (no (unknown) (unknown) This 46-year-old (units (unknown) date) woman reports to unknown) the emergency department with a rash on her (unknown) (no (unknown) (unknown) This woman appears (units (unknown) date) to have some sort unknown) of small inflammation on the crown of her (unknown) (no (unknown) (unknown) Time Seen by (units (u nknown) date) Provider: 12/21/21 unknown) 20:44 (unknown) (no (unknown) (unknown) Vital Signs (units (un known) date) unknown) (unknown) (no (unknown) (unknown) Vital signs: (units (u nknown) date) unknown) (unknown) (no (unknown) (unknown) alcohol intake (units (unknown) date) frequency: unknown) holidays/special occasions only (unknown) (no (unknown) (unknown) area of induration (units (unknown) date) on the crown of her unknown) head. There is no redness, fluctuance, (unknown) (no (unknown) (unknown) different scars (units (unknown) date) and wondering if unknown) they might be an infection of some sort. She (unknown) (no (unknown) (unknown) doxycycline (units (un known) date) hyclate 100 mg unknown) tablet 100 mg PO BID #20 tabs 10/10/19 (unknown) (no (unknown) (unknown) follow-up with a (units (unknown) date) primary care doctor unknown) to discuss other options including the (unknown) (no (unknown) (unknown) head that is (units (u nknown) date) driving her crazy unknown) over a couple of years. I wonder if there is (unknown) (no (unknown) (unknown) head. She says (units (unknown) date) this rash has been unknown) present for about 2 years. She says she has (unknown) (no (unknown) (unknown) hydroxyzine (units (un known) date) pamoate 50 mg unknown) capsule 50 mg PO QID PRN itching/sleep #10 08/25/18 (unknown) (no (unknown) (unknown) indolent (units (unkno wn) date) inflammatory unknown) process. I recommend that you try a topical liquid (unknown) (no (unknown) (unknown) is closely cut the (units (unknown) date) hair on her head in unknown) a reverse mohak type style exposing an (unknown) (no (unknown) (unknown) latex Allergy Mild (units (unknown) date) red, Verified unknown) 12/19/21 20:33 (unknown) (no (unknown) (unknown) lotion (units (unkno wn) date) unknown) (unknown) (no (unknown) (unknown) made. She also (units (unknown) date) points to various unknown) other places on her skin pointing out (unknown) (no (unknown) (unknown) not an abscess or (units (unknown) date) MRSA or other unknown) traditional skin based infection. It is not a (unknown) (no (unknown) (unknown) parasite. It is (units (unknown) date) not skin cancer. It unknown) may be a fungal infection or some other (unknown) (no (unknown) (unknown) permethrin 1 % (units (unknown) date) topical liquid 60 unknown) ml topical ONCE #118 mL 10/26/19 (unknown) (no (unknown) (unknown) please see it (units ( unknown) date) there. unknown) (unknown) (no (unknown) (unknown) possibility of (units (unknown) date) skin biopsy. unknown) (unknown) (no (unknown) (unknown) rales, or rhonchi. 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 (unknown) (no (unknown) (unknown) steroid to see if (units (unknown) date) that helps. 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 (unknown) (no (unknown) (unknown) very small. She (units (unknown) date) denies other unknown) symptoms of illness such as fever, cough, (unknown) (no (unknown) (unknown) vesicle, warmth or (units (unknown) date) irregularity unknown) otherwise but there is a palpable mass that is Social History No information. Vital Signs No information.
[2022-01-21] MEDS ORDERED: LIDOCAINE 2%-EPI 1:100000 20 ML MDV SUBQ STA (17:55)
[2022-01-21] MEDS ORDERED: LIDOCAINE-EPINEPH-TETRACAINE 3 ML SYRINGE TOP STA (17:55)
[2022-01-21] MEDS ORDERED: DOXYCYCLINE 100 MG TABLET PO STA (18:45)
--- NOTE | 2022-01-21 18:48 | ED Physician Documentation ---
PD HPI SKIN - Stated complaint Stated Complaint: CYST ON R ARM - Chief complaint Chief Complaint: Wound - History obtained from History obtained from: Patient - Additional information Additional information: Patient is a 46-year-old female presenting for evaluation of redness and swelling to her right upper arm. This been present for 3 days. She is unsure of what started this as she denies any known injury or abrasions. She does have a history of IV drug use but denies IV drug use in several years. She does have a history of recurrent skin abscesses requiring I&D.She denies fever, chest pain, difficulty breathing. She denies limitations in range of motion of her right arm. 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 SPEECH: None : None HEENT: None Psych: None Musculoskeletal: None Derm: Other - Past Surgical History Past Surgical History: Yes General: Hiatal hernia repair Ortho: Other /SUPERVISOR SPEECH: section, 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 - Present Medications Home Medications: Ambulatory Orders Medication Instructions Recorded Confirmed clindamycin HCL [Cleocin HCl] 300 mg PO Q6H #40 cap 12/02/20 12/08/20 Mupirocin 2% Oint [Bactroban 2% 1 applic TOP BID #22 gm 12/08/20 Oint] Chlorhexidine Gluconate [Hibiclens] 15 ml TP DAILY #236 ml 02/12/21 Doxycycline Hyclate 100 mg PO BID 7 Days #14 tab 02/12/21 HYDROcod/ACETAM 5/325 [[place] 5/325] 1 ea PO Q6H PRN #14 tablet 02/12/21 Mupirocin 2% Oint [Bactroban 2% 1 applic TOP BID #50 gm 02/12/21 Oint] Chlorhexidine Gluconate [Hibiclens] 10 ml TP DAILY #236 ml 01/21/22 Doxycycline Hyclate 100 mg PO BID #14 tab 01/21/22 - Allergies Allergies/Adverse Reactions: Allergies Allergy/AdvReac Type Severity Reaction Status Date / Time Latex, Natural Rubber Allergy Rash Verified 01/21/22 17:27 Penicillins AdvReac Unknown Verified 01/21/22 17:27 - Social History Does the pt smoke?: Yes Smoking Status: Current every day smoker Does the pt drink ETOH?: Yes Does the pt have substance abuse?: No - Immunizations Immunizations are current?: Yes Immunizations: TDAP current <10years - POLST Patient has POLST: No PD ED PE NORMAL - General General: Alert and oriented X 3, No acute distress, Well developed/nourished - HEENT HEENT: Atraumatic - Neck Neck: Supple, no meningeal sign - Cardiac Cardiac: RRR, No murmur, Strong equal pulses - Respiratory Respiratory: No respiratory distress, Clear bilaterally - Extremities Extremities: Other (Redness and swelling to right upper extremity, full range of motion without pain at shoulder and elbow, 2 cm area of fluctuance) - Neuro Neuro: No motor deficit, No sensory deficit PD ED PE EXPANDED - Extremities CATRACHO UE/Hands Visual: 1 - rash, swelling Results - Vitals Vitals: Vital Signs - 24 hr 01/21/22 01/21/22 17:24 19:07 Temperature 36.5 C 37.0 C Heart Rate 93 87 Respiratory 16 20 Rate Blood Pressure 139/96 H 132/81 H O2 Saturation 100 100 Oxygen O2 Source Room air - Labs Labs: Microbiology 01/21/22 18:30 Wound Culture - Preliminary Abscess Procedures - Abscess I&D (location) Right upper extremity Preparation: Lidocaine 1%, LET Incision: Incised with scalpel, Purulent drainage, Loculations broken, Irrigated, Culture obtained Other: Pt tolerated well, Dressing applied, Antibiotic prescribed PD MEDICAL DECISION MAKING - ED course ED course: Patient with redness and swelling to right upper extremity. Exam is consistent with abscess with overlying cellulitis. She is afebrile with reassuring vital signs. She does not appear toxic and has no signs of joint involvement. No concerns for foreign body. Abscess was I&D with purulent drainage, loculations broken up. A culture was obtained and patient was started on oral antibiotics given accompanying cellulitis. She is counseled on treatment plan as well as concerning symptoms to return for. Departure - Departure Disposition: 01 Home, Self Care Clinical Impression: Abscess of right arm, Right arm cellulitis Condition: Stable Instructions: ED Abscess IandD Prescriptions: Doxycycline Hyclate 100 mg PO BID #14 tab Chlorhexidine Gluconate [Hibiclens] 10 ml TP DAILY #236 ml Comments: You have an abscess to your right arm that was opened and drained. I have also started you on an antibiotic as there is infection of the overlying skin called cellulitis. [facility] [place]. Please make sure to complete the course of the antibiotics. Please keep an eye on your wound. You can use warm compresses to allow further drainage from the wound. If you have any worsening symptoms please return to the ER. I have also sent a prescription for a topical agent called Hibiclens to help Prevent skin infectio ns. Discharge Date/Time: 01/21/22 19:09
[2022-01-21 19:09] VITALS: BP 132/81
== END 2022-01-21 19:09 | disposition home or self-care (01) ==
LOC: ED 17:20
DX: L02.413 Cutaneous abscess of right upper limb (principal); L03.113 Cellulitis of right upper limb; F17.200 Nicotine dependence, unspecified, uncomplicated
CPT/HCPCS: 10060; 87070; 87181; 87205; 99283; A9270

== ENCOUNTER → 2022-01-29 | Outpatient (CLI) | payer MEDICAID ==
--- NOTE | 2022-01-30 13:47 | XRAY Report ---
PROCEDURE: Hand 3 View LT INDICATIONS: CONTUSION OF L HAND TECHNIQUE: Three views of the hand(s) acquired. COMPARISON: None FINDINGS: Bones: No fractures or dislocations. No suspicious bony lesions. Soft tissues: No suspicious soft tissue calcifications. IMPRESSION: No acute finding. Reviewed by: Abdifatah Nicole MD on 01/30/2022 1:45 PM PDT Approved by: Abdifatah Nicole MD on 01/30/2022 1:45 PM PDT Station ID: [id number]
== END ==
LOC: DI.N 19:05
PROVIDERS: ATTEND Physician Assistant
DX: S60.222A Contusion of left hand, initial encounter (principal)

== ENCOUNTER 2022-03-28 14:06 | Emergency (ER) | payer MEDICAID ==
[2022-03-28 14:45] VITALS: BP 139/97
--- NOTE | 2022-03-28 15:18 | ED Physician Documentation ---
History of Present Illness - Stated complaint Stated Complaint: HEAD PX - Chief complaint Chief Complaint: General - History obtained from History obtained from: Patient - Additonal information Additional information: 46-year-old woman with history of methamphetamine abuse presents thinking there are lesions on her scalp. This is a recurrent problem for her with many visits over many years with no clear diagnosis other than methamphetamine abuse and occasional MRSA infections. She also thinks something is moving in her mouth and points to a large cavity noting that she is lost several teeth in the last few years despite "having good teeth." She denies ongoing methamphetamine abuse but refuses to do a drug test today. Review of Systems Constitutional: reports: Reviewed and negative Eyes: reports: Reviewed and negative Ears: reports: Reviewed and negative PD PAST MEDICAL HISTORY - Past Medical History Cardiovascular: None Respiratory: None Neuro: None Endocrine/Autoimmune: None GI: Hepatitis STUDIO DESIGNER: None : None HEENT: None Psych: None Musculoskeletal: None Derm: Other - Past Surgical History Past Surgical History: Yes General: Hiatal hernia repair Ortho: Other /STUDIO DESIGNER: section, 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 - Present Medications Home Medications: Ambulatory Orders Medication Instructions Recorded Confirmed clindamycin HCL [Cleocin HCl] 300 mg PO Q6H #40 cap 12/02/20 12/08/20 Mupirocin 2% Oint [Bactroban 2% 1 applic TOP BID #22 gm 12/08/20 Oint] Chlorhexidine Gluconate [Hibiclens] 15 ml TP DAILY #236 ml 02/12/21 Doxycycline Hyclate 100 mg PO BID 7 Days #14 tab 02/12/21 HYDROcod/ACETAM 5/325 [[place] 5/325] 1 ea PO Q6H PRN #14 tablet 02/12/21 Mupirocin 2% Oint [Bactroban 2% 1 applic TOP BID #50 gm 02/12/21 Oint] Chlorhexidine Gluconate [Hibiclens] 10 ml TP DAILY #236 ml 01/21/22 Doxycycline Hyclate 100 mg PO BID #14 tab 01/21/22 - Allergies Allergies/Adverse Reactions: Allergies Allergy/AdvReac Type Severity Reaction Status Date / Time Latex, Natural Rubber Allergy Rash Verified 03/28/22 14:45 Penicillins AdvReac Unknown Verified 03/28/22 14:45 - Social History Does the pt smoke?: Yes Smoking Status: Current every day smoker Does the pt drink ETOH?: Yes Does the pt have substance abuse?: No - Immunizations Immunizations are current?: Yes Immunizations: TDAP current <10years - POLST Patient has POLST: No PD ED PE NORMAL - Vitals Vital signs reviewed: Yes - General General: Alert and oriented X 3, No acute distress - HEENT HEENT: PERRL, EOMI, Other (She has shaved her scalp On the top and there is evidence of picking at the scalp but no active infections. She has multiple dental caries.) - Neuro Neuro: Alert and oriented X 3, Normal speech - Psych Psych: Other (Poor eye contact, disheveled) Results - Vitals Vitals: Vital Signs - 24 hr 03/28/22 14:39 Temperature 36.5 C Heart Rate 75 Respiratory 14 Rate Blood Pressure 139/97 H O2 Saturation 100 Oxygen O2 Source Room air PD MEDICAL DECISION MAKING - ED course ED course: 46-year-old woman presents with self picking skin lesions and potential parasitosis. She denies ongoing methamphetamine abuse and I am skeptical and have recommended a drug screen today which she has refused. Note made that she started having emergency department visits for similar issues back in 2018 and has multiple visits for this, which seem to be accelerating over the years. She saw a mechanical ordnance assembler for this, but is vague on their diagnosis or treatment plan. Departure - Departure Disposition: 01 Home, Self Care Clinical Impression: Compulsive skin picking, Dental caries Condition: Good Record reviewed to determine appropriate education?: Yes Instructions: ED Cavity Dental Comments: There is no evidence of active skin infection. There is no emergency medical condition. You have a history of methamphetamine abuse and have refused to do a drug test today. You also show me a large cavity, you need to see a dentist. Return for new or worsening symptoms. Follow-up with your primary care physician, next available appointment. Discharge Date/Time: 03/28/22 15:25
== END 2022-03-28 15:25 | disposition home or self-care (01) ==
LOC: ED 14:06
DX: F42.4 Excoriation (skin-picking) disorder (principal); F17.200 Nicotine dependence, unspecified, uncomplicated; K02.9 Dental caries, unspecified
CPT/HCPCS: 99281; 99283

== ENCOUNTER 2022-05-30 03:07 | Emergency (ER) | payer MEDICAID ==
[2022-05-30 03:19] VITALS: BP 138/89
[2022-05-30] MEDS ORDERED: hydrOXYzine PAMOATE 25 MG CAPSULE PO STA (04:14)
--- NOTE | 2022-05-30 07:41 | ED Physician Documentation ---
PD HPI SKIN - Stated complaint Stated Complaint: BODY RASH - Chief complaint Chief Complaint: Wound - History obtained from History obtained from: Patient - History of Present Illness Timing - onset: Chronic Contributing factors: Unknown Similar symptoms before: No diagnosis - Additional information Additional information: HPI from patient. Patient complains of multiple lesions in different areas of her body, unclear as to the timeframe of the individual lesions, but she says overall the problem she feels she is having at times these lesions together has been going on for at least 5 to 10 years. She has been evaluated in this emergency department 21 times (including tonight) over the past 3 years, nearly all of which have been for similar dermatologic complaint. She says she has seen a irrigator gravity flow but it is unclear whether diagnosis was achieved as is whether any follow-up was recommended or is arranged. Patient says that some of the lesions have had "worms" come out from them, and that at times she feels she is able to pick out these worms. 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 : None HEENT: None Psych: None Musculoskeletal: None Derm: Other - Past Surgical History Past Surgical History: Yes General: Hiatal hernia repair Ortho: Other /TRANSITION SOCIAL WORKER: section, 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 - Present Medications Home Medications: Ambulatory Orders Medication Instructions Recorded Confirmed hydrOXYzine HCL [Hydroxyzine HCl] 25 mg PO TID PRN #20 tablet 05/30/22 - Allergies Allergies/Adverse Reactions: Allergies Allergy/AdvReac Type Severity Reaction Status Date / Time Latex, Natural Rubber Allergy Rash Verified 05/30/22 03:19 Penicillins AdvReac Unknown Verified 05/30/22 03:19 - Social History Does the pt smoke?: Yes Smoking Status: Current every day smoker Does the pt drink ETOH?: Yes Does the pt have substance abuse?: No - Immunizations Immunizations are current?: No Immunizations: TDAP current <10years - POLST Patient has POLST: No PD ED PE NORMAL - Vitals Vital signs reviewed: Yes - General General: Alert and oriented X 3, No acute distress, Well developed/nourished - Derm Derm: Other (no discrete exanthem, no abscess. HAIR: no nits, no lice (using lens from otoscope for magnification). ) Results - Vitals Vitals: Vital Signs - 24 hr 05/30/22 03:17 Temperature 37.3 C Heart Rate 86 Respiratory 17 Rate Blood Pressure 138/89 H O2 Saturation 100 Oxygen O2 Source Room air PD Medical Decision Making - ED course Complexity details: reviewed old records, considered differential, d/w patient ED course: Patient is frequently referring to many different lesions, both visible and perceived (presumably, as I do not see nor palpate any abnormality at some of the areas she indicates are part of what ever problem she feels is causing her symptoms). I do not see any exanthem, abscess, nor other specific nor concerning findings on dermatologic exam. For example, she points to a single punctate scab on her anterior midline chest. She points to a similar single healed scab on the medial aspect of her right eyebrow. She points to scar tissue on the right chest and right proximal humerus. She also points to her forehead and start rubbing her forehead and says she feels as if the worms are coming out as she is does this, however, she agrees that there are no worms on her hands when she is finished rubbing her forehead. I do note that on some previous visits my colleagues have found discrete abscesses and at times these have required incision and drainage. None of the lesions she is pointing to has any appearance to suggest even an early abscess at this time. Explained to the patient that there is no testing or specific treatment that would be indicated nor help her at this time. Explained that it is very important that she follows up with a irrigator gravity flow and, if she has difficulty doing so, or feels she wants to speak with a different irrigator gravity flow, she should see her primary care provider for further evaluation/reevaluation. I explained that the one medication I would feel comfortable prescribing that might help her would be hydroxyzine, which can help with pruritus as well as sleep. She said she is being given a ride home and thus I offered a dose now which she accepted. However, she left the ER before she was given a dose as well as before the discharge instructions were provided. Departure - Departure Disposition: 01 Home, Self Care Clinical Impression: Parasitosis Condition: Good Instructions: ED Symptoms No Dx Prescriptions: hydrOXYzine HCL [Hydroxyzine HCl] 25 mg PO TID PRN #20 tablet PRN Reason: Itching Comments: As we discussed, the cause of your various skin lesions is not apparent at this time. I do not see any evidence of an infection at this time such as an abscess or a skin infection such as cellulitis (either of these would require an antibiotic, and abscess usually needs to be drained). Furthermore, the lesions that you are pointing to mostly have different appearances from the other lesions you point to. I do not suspect that any diagnosis would explain all of these various lesions. As we discussed, I strongly recommend that you follow-up with your irrigator gravity flow. If you cannot follow-up with a irrigator gravity flow, contact your primary care provider's office to arrange for next available follow-up to discuss referral to a irrigator gravity flow if your primary care provider thinks this is an appropriate course of action. I am providing you with a prescription for hydroxyzine; this is an antihistamine, and it can help with both itching as well as difficulty sleeping. Because this medication will make most people quite drowsy, do not drive for a minimum of 6 hours after taking a dose. Do not take any other sedatives such as Benadryl or any sleep medications if you are taking the hydroxyzine. Discharge Date/Time: 05/30/22 04:25
== END 2022-05-30 04:25 | disposition home or self-care (01) ==
LOC: ED 03:07
DX: F22 Delusional disorders (principal); F17.200 Nicotine dependence, unspecified, uncomplicated
CPT/HCPCS: 99282; 99283

== ENCOUNTER 2022-07-13 16:17 | Emergency (ER) | payer MEDICAID ==
[2022-07-13 16:27] VITALS: BP 132/93
--- NOTE | 2022-07-13 16:30 | ED Physician Documentation ---
PD HPI SKIN - Stated complaint Stated Complaint: EYE PX - Chief complaint Chief Complaint: Wound - History obtained from History obtained from: Patient - History of Present Illness Timing - onset: How many weeks ago (The patient reports an ulcerative sore in the medial right eyebrow area for several weeks or more. She states it is gotten larger last few days with some drainage and tenderness.) Timing - duration: Weeks Timing - details: Gradual onset, Still present Location: Face (right eyebrow area) Quality / character: Itchy, Swelling, Draining (recently) Associated symptoms: No: Fever Contributing factors: Other (she has delusions of parasitism and picks at skin often, jw frontal scalp/hair. 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 : None HEENT: None Psych: Other (delusions of parasitism) Musculoskeletal: None Derm: Other - Past Surgical History Past Surgical History: Yes General: Hiatal hernia repair Ortho: Other /AUTO TRANSPORT DRIVER: section, 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 - Present Medications Home Medications: Ambulatory Orders Medication Instructions Recorded Confirmed hydrOXYzine HCL [Hydroxyzine HCl] 25 mg PO TID PRN #20 tablet 05/30/22 Chlorhexidine Gluconate [Hibiclens] 15 ml TP DAILY #236 ml 07/13/22 Doxycycline Hyclate 100 mg PO BID 7 Days #14 cap 07/13/22 Mupirocin 2% Oint [Bactroban 2% 1 applic TOP TID #15 gm 07/13/22 Oint] - Allergies Allergies/Adverse Reactions: Allergies Allergy/AdvReac Type Severity Reaction Status Date / Time Latex, Natural Rubber Allergy Rash Verified 07/13/22 16:27 Penicillins AdvReac Unknown Verified 07/13/22 16:27 - Social History Does the pt smoke?: Yes Smoking Status: Current every day smoker Does the pt drink ETOH?: Yes Does the pt have substance abuse?: No - Immunizations Immunizations are current?: No Immunizations: TDAP current <10years - POLST Patient has POLST: No PD ED PE NORMAL - Vitals Vital signs reviewed: Yes - General General: Alert and oriented X 3, Well developed/nourished, Other (She has irregular length cropped hair in the frontal area consistent with hair picking.) - HEENT HEENT: PERRL, EOMI, Other (The right medial eyebrow area shows a 1 to 1-1/2 cm irregularly shaped superficially ulcerative lesion with some surrounding redness and tenderness. The forehead has some mild redness and swelling.) Results - Vitals Vitals: Vital Signs - 24 hr 07/13/22 16:24 Temperature 36.0 C L Heart Rate 100 Respiratory 16 Rate Blood Pressure 132/93 H O2 Saturation 100 Oxygen O2 Source Room air PD Medical Decision Making - ED course Complexity details: reviewed old records (BILL report reviewed.), considered differential, d/w patient Social Determinants of Health: She does not have access to a shower regularly. Typically once or twice per week. This limits the degree of skin cleansing generally but I will prescribe some chlorhexidine to use body wide with showers to help reduce skin load of bacteria. ED course: The patient states she has had a small ulcerative lesion on the right eyebrow area for several weeks or more. It is now 1 to 2 days of increased redness swelling and tenderness with some mild bleeding. I presume a secondary infection. The duration is too long for just a bacterial infection itself. She states her primary care is getting a referral for her to a supervisor partial denture department. This is reasonable to evaluate the underlying lesion with consideration of skin tumors. However does appeared to have a developing secondary bacterial infection now. We will treat it with topical and oral antibiotics. Departure - Departure Disposition: 01 Home, Self Care Clinical Impression: Facial skin lesion, Wound infection Condition: Stable Record reviewed to determine appropriate education?: Yes Instructions: ED Staph Infec Abx Tx Only Prescriptions: Mupirocin 2% Oint [Bactroban 2% Oint] 1 applic TOP TID #15 gm Doxycycline Hyclate 100 mg PO BID 7 Days #14 cap Chlorhexidine Gluconate [Hibiclens] 15 ml TP DAILY #236 ml Comments: Continue with the follow-up for dermatology referral being done by your primary care to evaluate the underlying lesion. It does look like it now has a secondary bacterial infection and I would treat it with topical antibiotic mupirocin and oral antibiotic doxycycline. When you do have access to shower, use the chlorhexidine body wide to help decrease the amount of germs overall on your skin. I sent your prescription to [facility] pharmacy. Follow-up with your primary care if not improving well over the next few days. Discharge Date/Time: 07/13/22 17:02
[2022-07-13] MEDS ORDERED: DOXYCYCLINE 100 MG TABLET PO STA (16:45)
[2022-07-13] MEDS ORDERED: MUPIROCIN 2% OINT 1 GM TOP STA (16:45)
== END 2022-07-13 17:02 | disposition home or self-care (01) ==
LOC: ED 16:17
DX: L08.89 Other specified local infections of the skin and subcutaneous tissue (principal); F17.200 Nicotine dependence, unspecified, uncomplicated
CPT/HCPCS: 99283; A9270

== ENCOUNTER 2022-08-27 02:11 | Emergency (ER) | payer MEDICAID ==
[2022-08-27 02:26] VITALS: BP 127/83
[2022-08-27] MEDS ORDERED: hydrOXYzine PAMOATE 25 MG CAPSULE PO STA (02:44)
--- NOTE | 2022-08-27 02:47 | ED Physician Documentation ---
History of Present Illness - Stated complaint Stated Complaint: HEAD PX - Chief complaint Chief Complaint: General - History obtained from History obtained from: Patient - Additonal information Additional information: 47-year-old woman with history of methamphetamine abuse presents with picking behavior to her scalp. She has multiple cuts to the scalp and was prescribed antifungal ointment but states it has not fixed the problem. She is actively picking at her scalp as I speak with her in the room. 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 : None HEENT: None Psych: Other Musculoskeletal: None Derm: Other - Past Surgical History Past Surgical History: Yes General: Hiatal hernia repair Ortho: Other /CLERK ENTRY LEVEL: section, 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 - Present Medications Home Medications: Ambulatory Orders Medication Instructions Recorded Confirmed hydrOXYzine HCL [Hydroxyzine HCl] 25 mg PO TID PRN #20 tablet 05/30/22 Chlorhexidine Gluconate [Hibiclens] 15 ml TP DAILY #236 ml 07/13/22 Doxycycline Hyclate 100 mg PO BID 7 Days #14 cap 07/13/22 Mupirocin 2% Oint [Bactroban 2% 1 applic TOP TID #15 gm 07/13/22 Oint] hydrOXYzine PAMOATE [Vistaril] 25 mg PO Q6H PRN #20 tab 08/27/22 - Allergies Allergies/Adverse Reactions: Allergies Allergy/AdvReac Type Severity Reaction Status Date / Time Latex, Natural Rubber Allergy Rash Verified 07/13/22 16:27 Penicillins AdvReac Unknown Verified 07/13/22 16:27 - Social History Does the pt smoke?: Yes Smoking Status: Current every day smoker Does the pt drink ETOH?: Yes Does the pt have substance abuse?: No - Immunizations Immunizations are current?: No Immunizations: TDAP current <10years - POLST Patient has POLST: No PD ED PE NORMAL - Vitals Vital signs reviewed: Yes - General General: Alert and oriented X 3, No acute distress, Well developed/nourished, Other (intoxicated with methamphetamine) - HEENT HEENT: Atraumatic, PERRL, EOMI, Other (scalp in varying states of baldness with multiple excoriations, abrasions. no sign of infection) Results - Vitals Vitals: Vital Signs - 24 hr 08/27/22 02:23 Temperature 36.0 C L Heart Rate 84 Respiratory 15 Rate Blood Pressure 127/83 H O2 Saturation 99 Oxygen O2 Source Room air PD Medical Decision Making - ED course ED course: 47yF with history of scalp picking behavior 2/2 meth p/w complaint of spider like sensation to scalp as well as several excoriations that are not infected as of yet. advised that it is a side effect of meth use. Patient requested oral medication to help her and I provided rx for atarax, stating it may help her feel more calm and stop picking. Recommending to use antibiotic otc ointment on the scalp, wash hands regularly, and stop using meth as well. return precautions given. Departure - Departure Disposition: 01 Home, Self Care Clinical Impression: Methamphetamine abuse, Compulsive skin picking Condition: Stable Instructions: Abuse Meth Abuse and Addiction Prescriptions: hydrOXYzine PAMOATE [Vistaril] 25 mg PO Q6H PRN #20 tab PRN Reason: Anxiety Comments: You are seen in the emergency department for skin picking behavior that is a side effect of methamphetamine. I sent a prescription for Atarax (generic name hydroxyzine) to [facility] in [place]. Return to the emergency department if you have other concerns or if you would like help to quit using meth. Follow-up with a primary care provider.
--- NOTE | 2022-08-28 12:10 | ED Physician Documentation ---
ED Addendum - Addendum Addendum: 08/28/22 12:09 Got a call from the patient that the prescription from the other night apparently had not been pushed to the pharmacy. I went into the record and transmitted the written prescription. It does look like it had not been transmitted. It should be available now.
== END 2022-08-27 03:03 | disposition home or self-care (01) ==
LOC: ED 02:11
DX: F17.200 Nicotine dependence, unspecified, uncomplicated (principal); F15.10 Other stimulant abuse, uncomplicated; L70.5 Acne excoriee
CPT/HCPCS: 99282; 99283; A9270

== ENCOUNTER 2022-10-28 16:53 | Outpatient (CLI) | payer MEDICAID | END 2022-10-28 23:59 | disposition critical access hospital (66) | LOC: EMS 16:53 | DX: R44.0 Auditory hallucinations (principal) | CPT/HCPCS: A0425; A0429; A0999 ==

== ENCOUNTER 2022-10-28 17:05 | Emergency (ER) | payer MEDICAID ==
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
[2022-10-28 17:18] VITALS: BP 127/80
== END 2022-10-28 17:26 | disposition home or self-care (01) ==
LOC: EDUNIT# → ED 17:05
DX: F15.10 Other stimulant abuse, uncomplicated (principal); F17.200 Nicotine dependence, unspecified, uncomplicated; Z79.899 Other long term (current) drug therapy
CPT/HCPCS: 80053; 80307; 80320; 80329; 82550; 83690; 83735; 84443; 85025; 99283

== ENCOUNTER 2022-12-07 17:54 | Emergency (ER) | payer MEDICAID ==
[2022-12-07 18:19] VITALS: BP 134/74
--- NOTE | 2022-12-07 18:32 | ED Physician Documentation ---
PD HPI SKIN - Stated complaint Stated Complaint: SPIDER BITE HEAD - Chief complaint Chief Complaint: Wound - History obtained from History obtained from: Patient - History of Present Illness Timing - onset: How many months ago (1-2) Timing - duration: Months (1-2) Timing - details: Gradual onset, Still present Location: Scalp (main complaint is feeling of bugs under her skin frontal scalp, but some all over scalp and has at times feeling of bugs under her skin bodywide. Has been seen for scalp itching/bugs feeling prior in ED. NO Rx given per se. 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 : None HEENT: None Psych: Other Musculoskeletal: None Derm: Other - Past Surgical History Past Surgical History: Yes General: Hiatal hernia repair Ortho: Other /APPRAISAL MANAGER: section, 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 - Present Medications Home Medications: Ambulatory Orders Medication Instructions Recorded Confirmed Ketoconazole [Nizoral A-D] 1 applic TP DAILY #200 ml 12/07/22 Terbinafine HCl [Lamisil At] 1 applic TP BID #30 gm 12/07/22 - Allergies Allergies/Adverse Reactions: Allergies Allergy/AdvReac Type Severity Reaction Status Date / Time Latex, Natural Rubber Allergy Rash Verified 07/13/22 16:27 Penicillins AdvReac Unknown Verified 07/13/22 16:27 - Social History Does the pt smoke?: Yes Smoking Status: Current every day smoker Does the pt drink ETOH?: Yes Does the pt have substance abuse?: No Substance Use and Type: Meth - Immunizations Immunizations are current?: No Immunizations: TDAP current <10years - POLST Patient has POLST: No PD ED PE NORMAL - Vitals Vital signs reviewed: Yes - General General: No acute distress (but is continuing to pick at scalp and pinch at belen in frontal area. Hair is short in that area at variable length c/w being torn. No true alopecia areas. Some skin irritation and couple spots are rounded with red edges 1 cm ciameter. no nits/lice seen. Minimal dandruff generally. ), Well developed/nourished. No: Alert and oriented X 3 Results - Vitals Vitals: Oxygen O2 Source Room air PD Medical Decision Making - ED course Complexity details: d/w patient ED course: The patient has prior visits with feelings of bug contamination and skin irritation and also scalp parasitism. Previously she had admitted to methamphetamine use. Initially today she has denied substance abuse but then did not deny nor agree with it. I did tell her that the feeling of irritation and crawling in the skin can be a side effect of meth use and give the sensation of bugs being present. I asked if she was interested in any rehab or substance abuse treatment and she declined. Her scalp does have some areas of irritation and a couple that are rounded that could be consistent with tinea in places. However it generally does not look like tinea capitis as area is not that involved and there is no true hair loss but just cropped hair from scratching and picking. The short hair is localized to frontl patch. She had a couple of particular areas that she said "feel it right there" and I could feel some slight inflammation of the skin but no visual abnormalities. Of particular note, I do not see any notable dandruff and I do not see any spots that would be concerning for nits or lice. I suggested some antifungal cream to some of the spots on the top of the scalp. Also generally a ketoconazole shampoo may help with some of the irritation of the scalp. She states she had a friend waiting to give her a ride home. Departure - Departure Disposition: 01 Home, Self Care Clinical Impression: Scalp irritation, Delusions of parasitosis Condition: Stable Record reviewed to determine appropriate education?: Yes Prescriptions: Terbinafine HCl [Lamisil At] 1 applic TP BID #30 gm Ketoconazole [Nizoral A-D] 1 applic TP DAILY #200 ml Comments: I do not see any signs of abscesses or what appears to be spider bites or local infections. The scalp appears irritated from being in scratched. There are couple of areas that look like there could be an element of a fungal infection in the scalp. We could try treating that topically initially. Mainly I believe you have the feeling of skin irritation that translates into a feeling of bugs in there. I do not believe there are actually bugs in the scalp. This could be a side effect of other conditions in particular some substance use. I would suggest treating the couple of main irritated spots on the top of your head with terbinafine antifungal cream twice daily lightly to the areas. In addition I would have you use a antifungal shampoo daily generally in the scalp as directed on the bottle. This can be used for skin irritation and seborrhea as well. I do not see dandruff per se but this scalp skin is irritated from your scratching. I hope the above medications can help. I sent your prescriptions to [facility] pharmacy. Forms: PCP List Discharge Date/Time: 12/07/22 18:55
[2022-12-07] MEDS ORDERED: BACITRACIN ZINC OINT 1 PACKET TOP STA (18:42)
== END 2022-12-07 18:55 | disposition home or self-care (01) ==
LOC: ED 17:54
DX: L98.9 Disorder of the skin and subcutaneous tissue, unspecified (principal); F22 Delusional disorders; F17.200 Nicotine dependence, unspecified, uncomplicated; Z91.040 Latex allergy status
CPT/HCPCS: 99282; 99283

== ENCOUNTER 2023-02-22 20:35 | Emergency (ER) | payer MEDICAID ==
--- NOTE | 2023-02-22 21:11 | ED Physician Documentation ---
PD HPI URI - Stated complaint Stated Complaint: SOA/COUGH - Chief complaint Chief Complaint: Resp - History obtained from History obtained from: Patient - Additional information Additional information: 47-year-old female who has a history of tobacco abuse presents with cough for several days worsening today. She has frequent productive cough, causes a tearing painful sensation in her throat when she coughs. She also has a headache. No known fever, no wheezing or shortness of breath, no abdominal pain nausea vomiting or diarrhea. She does continue to smoke though smokes slightly less than last couple of days due to the cough. She has not attempted any medication. She states she used to have an inhaler that was helpful but she has run out. 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 : None HEENT: None Psych: Other Musculoskeletal: None Derm: Other - Past Surgical History Past Surgical History: Yes General: Hiatal hernia repair Ortho: 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 /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: section, 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 - Present Medications Home Medications: Ambulatory Orders Medication Instructions Recorded Confirmed Ketoconazole [Nizoral A-D] 1 applic TP DAILY #200 ml 12/07/22 Terbinafine HCl [Lamisil At] 1 applic TP BID #30 gm 12/07/22 Terbinafine HCl [Lamisil At] 1 applic TP BID #12 gm 01/19/23 Albuterol Sulfate [Proventil Hfa] 2 puffs IH Q4H PRN #6.7 gm 02/22/23 guaiFENesin [Mucinex] 1,200 mg PO BID #20 tablet 02/22/23 predniSONE [Deltasone] 40 mg PO DAILY 5 Days #10 tablet 02/22/23 - Allergies Allergies/Adverse Reactions: Allergies Allergy/AdvReac Type Severity Reaction Status Date / Time Latex, Natural Rubber Allergy Rash Verified 02/22/23 20:45 Penicillins AdvReac Unknown Verified 02/22/23 20:45 - Social History Does the pt smoke?: Yes Smoking Status: Current every day smoker Does the pt drink ETOH?: Yes Does the pt have substance abuse?: No - Immunizations Immunizations are current?: No Immunizations: TDAP current <10years - POLST Patient has POLST: No PD ED PE NORMAL - Vitals Vital signs reviewed: Yes - General General: Alert and oriented X 3, No acute distress, Well developed/nourished - HEENT HEENT: Atraumatic, Moist mucous membranes - Cardiac Cardiac: RRR, No murmur - Respiratory Respiratory: No respiratory distress, Other (Frequent rhonchorous and strong cough no primarily upper airway rhonchi. There is no active wheezing, no lower lung crackles.) - Abdomen Abdomen: Normal bowel sounds, Soft, Non tender, Non distended - Derm Derm: Normal color, Warm and dry, Other (Multiple sores on her scalp) Results - Vitals Vitals: Vital Signs - 24 hr 02/22/23 02/22/23 20:41 22:09 Temperature 36.2 C L 36.5 C Heart Rate 100 83 Respiratory 18 16 Rate Blood Pressure 120/75 138/72 H O2 Saturation 94 97 Oxygen O2 Source Room air - Labs Labs: Laboratory Tests 02/22/23 21:11 SARS-CoV-2 (PCR) NOT DETECTED - Rads (name of study) No standard instances Relevant Findings:: Prelim report reviewed PD Medical Decision Making - ED course Complexity details: reviewed results, re-evaluated patient, considered differential, d/w patient ED course: 47 yo F w/ hx/o COPD and current daily tobacco use presented w/ cough as described in HPI. Pt has strong cough w/ rhonchi on exam but no crackles, no hypoxia, no wheezing. xray was obtained and read by me and is normal. Covid test is negative. She was given mucinex here. Advised likely viral URI. Recommended oral fluids, rest, humidification, and to stop smoking. She can take mucinex prn. I have renewed her albuterol inhaler and given a short course of prednisone for mild COPD exacerbation 2/2 to viral URI. I do not think antibiotics are indicated today but pt advised to follow up if worsening . Departure - Departure Disposition: 01 Home, Self Care Clinical Impression: Bronchitis, Tobacco abuse counseling Condition: Good Instructions: ED Bronchitis Asthmatic Prescriptions: predniSONE [Deltasone] 40 mg PO DAILY 5 Days #10 tablet guaiFENesin [Mucinex] 1,200 mg PO BID #20 tablet Albuterol Sulfate [Proventil Hfa] 2 puffs IH Q4H PRN #6.7 gm PRN Reason: shortness of breath Comments: You have a cough, possible bronchitis. We obtained a covid test and will notify you if positive. Your xray is normal. Please try to quit smoking. It is damaging to your lungs and making your cough worse. You will continue to have frequent coughing flares and are at increased risk of respiratory illness due the tobacco smoke. Forms: PCP List Discharge Date/Time: 02/22/23 22:09
--- NOTE | 2023-02-22 21:56 | XRAY Report ---
PROCEDURE: Chest 1 View X-Ray INDICATIONS: chest pain TECHNIQUE: One view of the chest was acquired. COMPARISON: None. FINDINGS: Surgical changes and devices: None. Lungs and pleura: No pleural effusions or pneumothorax. Lungs are clear. Mediastinum: Mediastinal contours appear normal. Heart size is normal. Bones and chest wall: No suspicious bony lesions. Overlying soft tissues appear unremarkable. IMPRESSION: No acute cardiopulmonary process. Source of chest pain is not seen. Reviewed by: Leno Ngo MD on 02/22/2023 9:54 PM PDT Approved by: Leno Ngo MD on 02/22/2023 9:54 PM PDT Station ID: [id number]
[2023-02-22] MEDS ORDERED: guaiFENesin 600 MG TABLET PO ONE (22:00)
[2023-02-22 22:15] VITALS: BP 138/72; O2SAT 97
== END 2023-02-22 22:09 | disposition home or self-care (01) ==
LOC: ED 20:35
DX: J40 Bronchitis, not specified as acute or chronic (principal); Z72.0 Tobacco use; Z20.822 Contact with and (suspected) exposure to COVID-19
CPT/HCPCS: 71045; 87635; 99283; 99284; A9270

== ENCOUNTER 2023-08-03 03:59 | Emergency (ER) | payer MEDICAID ==
--- NOTE | 2023-08-03 04:15 | ED Physician Documentation ---
PD HPI BACK PAIN - Stated complaint Stated Complaint: BACK PX - Chief complaint Chief Complaint: Back Pain - History obtained from History obtained from: Patient - Additional information Additional information: HPI from patient. Patient has 35 [facility] ED visits since 2018. This is her th [place] ED visit to 2 EDs over past 12 months. Patient says she fell several stories 8 years ago, "no one ever did any tests" (per patient) and she is asking about having testing done to make sure there were no serious injuries. When asked about symptoms, she indicates bilateral low back pain that does not radiate. However, it is unclear if this pain is new or temporally related to the supposed fall she had eight years ago. She is asking about MRI but cannot elaborate as to what she would want imaged nor why. Looking at previous [facility] ED visits, I note previous visits with similar vague concerns regarding a fall she had 8 years ago. She also has frequent parasitosis-related c/o although she does not mention this at this time. I ask why she presents to ED at this time for concerns related to an event eight years ago and she cannot provide cogent answer(s), just reiterates that she wants to know if she sustained any injuries when she fell. Her back pain is across mid/lower back, worse with some movements but not all movement. No radiation, denies numbness, weakness, loss of bowel, bladder contin ence. Denies numbness, weakness Review of Systems GI: denies: Abdominal Pain, Nausea, Vomiting Musculoskeletal: reports: Back pain. 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 : None HEENT: None Psych: Other Musculoskeletal: None Derm: Other - Past Surgical History Past Surgical History: Yes General: Hiatal hernia repair Ortho: Other /ALLEY WORKER: section, 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 - Present Medications Home Medications: Ambulatory Orders Medication Instructions Recorded Confirmed Cyclobenzaprine [Flexeril] 10 mg PO TID PRN #14 tablet 08/03/23 Ibuprofen [Motrin] 600 mg PO Q6H PRN #20 tab 08/03/23 - Allergies Allergies/Adverse Reactions: Allergies Allergy/AdvReac Type Severity Reaction Status Date / Time Latex, Natural Rubber Allergy Rash Verified 08/03/23 04:13 Penicillins AdvReac Unknown Verified 08/03/23 04:13 - Social History Does the pt smoke?: Yes Smoking Status: Current every day smoker Does the pt drink ETOH?: Yes Does the pt have substance abuse?: No - Immunizations Immunizations are current?: No Immunizations: TDAP current <10years - POLST Patient has POLST: No PD ED PE NORMAL - Vitals Vital signs reviewed: Yes - General General: Alert and oriented X 3, No acute distress, Well developed/nourished, Other (dissheveled) - HEENT HEENT: PERRL, EOMI - Neck Neck: No bony TTP - Cardiac Cardiac: RRR, No murmur - Respiratory Respiratory: No respiratory distress, Clear bilaterally - Abdomen Abdomen: Soft, Non tender - Back Back: No CVA TTP, No spinal TTP - Neuro Neuro: Alert and oriented X 3 Eye Opening: Spontaneous Motor: Obeys Commands Verbal: Oriented GCS Score: 15 Results - Vitals Vitals: Oxygen O2 Source Room air PD Medical Decision Making - ED course Complexity details: reviewed old records, considered differential, d/w patient ED course: Given 600mg ibuprofen PO and 10mg PO flexeril with rx for both of these medications provided. Return precautions reviewed. I strongly encouraged her to seek follow up in outpatient setting for her reoccurring/chronic c/o Departure - Departure Disposition: 01 Home, Self Care Clinical Impression: Back pain Qualifiers: Back pain location: low back pain Chronicity: chronic Back pain laterality: bilateral Sciatica presence: without sciatica Qualified Code(s): M54.50 - Low back pain, unspecified Condition: Good Instructions: ED Neck Back Pain General Prescriptions: Cyclobenzaprine [Flexeril] 10 mg PO TID PRN #14 tablet PRN Reason: Spasms Ibuprofen [Motrin] 600 mg PO Q6H PRN #20 tab PRN Reason: Pain Comments: As we discussed, based on the ongoing/chronic nature of your back pain, there are no tests needed on an emergent basis. You need to follow-up with your primary care provider; at the discretion of your primary care provider, testing for your back pain can be undertaken in the outpatient setting. In the meantime, you were given a dose of ibuprofen (anti-inflammatory/analge sic) as well as cyclobenzaprine (muscle relaxant) in the emergency department, and I am providing you with prescriptions for both of these medications. Discharge Date/Time: 08/03/23 04:56
[2023-08-03 04:21] VITALS: BP 138/88; O2SAT 99
[2023-08-03] MEDS: CYCLOBENZAPRINE 10 MG TABLET PO STA (04:52)
[2023-08-03] MEDS: IBUPROFEN 600 MG TABLET PO STA (04:52)
== END 2023-08-03 04:56 | disposition home or self-care (01) ==
LOC: ED 03:59
DX: M54.50 Low back pain, unspecified (principal); F17.200 Nicotine dependence, unspecified, uncomplicated; Z91.040 Latex allergy status
CPT/HCPCS: 99282; 99283; A9270

== ENCOUNTER 2024-01-18 01:13 | Emergency (ER) | payer MEDICAID ==
[2024-01-18 01:39] VITALS: BP 146/91; O2SAT 97
--- NOTE | 2024-01-18 01:42 | ED Physician Documentation ---
History of Present Illness - Stated complaint Stated Complaint: BILAT LEG PX - Chief complaint Chief Complaint: Trauma Ext - History obtained from History obtained from: Patient - Additonal information Additional information: 48yF with pmh methamphetamine abuse and prior documented ED visits with "picking" behavior p/w multiple abrasions to BL legs and sensation of something migrating under her skin. 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 : None HEENT: None Psych: Other Musculoskeletal: None Derm: Other - Past Surgical History Past Surgical History: Yes General: Hiatal hernia repair Ortho: Other /INSPECTOR OPEN DIE: section, 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 - Present Medications Home Medications: Ambulatory Orders Medication Instructions Recorded Confirmed Cyclobenzaprine [Flexeril] 10 mg PO TID PRN #14 tablet 08/03/23 Ibuprofen [Motrin] 600 mg PO Q6H PRN #20 tab 08/03/23 Bacitracin 1 appful TOP BID PRN 14 Days #3.5 01/18/24 gm - Allergies Allergies/Adverse Reactions: Allergies Allergy/AdvReac Type Severity Reaction Status Date / Time Latex, Natural Rubber Allergy Rash Verified 01/18/24 01:26 Penicillins AdvReac Unknown Verified 01/18/24 01:26 - Social History Does the pt smoke?: Yes Smoking Status: Current every day smoker Does the pt drink ETOH?: Yes Does the pt have substance abuse?: Yes Substance Use and Type: Meth - Immunizations Immunizations are current?: No Immunizations: TDAP current <10years - POLST Patient has POLST: No PD ED PE NORMAL - Vitals Vital signs reviewed: Yes - General General: Alert and oriented X 3, No acute distress, Other (disheveled appearing) - HEENT HEENT: Atraumatic, PERRL, EOMI - Neck Neck: Supple, no meningeal sign - Derm Derm: Normal color, Warm and dry, Other (scattered abrasions BL legs without cellulitis or fluctuance) - Extremities Extremities: Other (CSM intact BL LE) Results - Vitals Vitals: Vital Signs - 24 hr 01/18/24 01:26 Temperature 36.5 C Heart Rate 97 Respiratory 16 Rate Blood Pressure 146/91 H O2 Saturation 97 Oxygen O2 Source Room air PD Medical Decision Making - ED course ED course: 48-year-old woman presents with scattered abrasions to bilateral legs. She appears to be actively intoxicated with methamphetamine. I reassured her that the abrasions are not dangerous and sent a prescription for antibiotic ointment to her pharmacy. Methamphetamine cessation resources were provided in her discharge paperwork. Departure - Departure Disposition: 01 Home, Self Care Clinical Impression: Abrasion of left leg Condition: Stable Instructions: ED Abrasion, Abuse Meth Abuse and Addiction Prescriptions: Bacitracin 1 appful TOP BID PRN 14 Days #3.5 gm PRN Reason: abrasion Comments: You were seen in the emergency department for evaluation of abrasions on the legs. Topical antibiotic ointment was sent Electronically to [facility] in [place]. Please follow-up with your primary care provider and return to the emergency department if you have any new or worsening symptoms or other concerns.
== END 2024-01-18 01:50 | disposition home or self-care (01) ==
LOC: ED 01:13
DX: S80.812A Abrasion, left lower leg, initial encounter (principal); S80.811A Abrasion, right lower leg, initial encounter; X58.XXXA Exposure to other specified factors, initial encounter; F17.200 Nicotine dependence, unspecified, uncomplicated; Z91.040 Latex allergy status
CPT/HCPCS: 99282; 99283